=== PATIENT | female | born 1965 | race Caucasian/White ===

== ENCOUNTER → 2016-08-09 08:19 | Outpatient (CLI) | payer MEDICARE, MEDICAID ==
[2010-09-14 08:54] VITALS: BMI 27.2
[~2016-08-09 08:19] MED LIST: LAMICTAL100 MG PO; LAMICTAL200 MG PO; LEVEMIR100 U/M1 SC; OMEPRAZOLE20 M1 PO; TRAZODONE HCL300 MG PO; ZOCOR20 MG PO
== END | disposition home or self-care (01) ==
LOC: D.RAD 08-08 11:30
DX: R10.11 Right upper quadrant pain (principal); R68.81 Early satiety

== ENCOUNTER → 2016-08-14 09:07 | Outpatient (CLI) | payer MEDICARE, MEDICAID ==
[2010-09-14 08:54] VITALS: BMI 27.2
== END | disposition home or self-care (01) ==
LOC: D.NM 09:07
DX: R10.11 Right upper quadrant pain (principal); R68.81 Early satiety

== ENCOUNTER 2016-09-20 13:29 | Day surgery (SDC) | payer MEDICARE, MEDICAID ==
[~2016-09-20] VITALS: Ht 172.7 cm; Wt 89.5 kg
[2016-09-20 14:48] LABS: HEMATOCRIT 38.4 % (36.0-48.0); HEMOGLOBIN 12.7 g/dL (12-16); MCH 30.9 pg (26.0-34.0); MCHC 33.1 g/dL (31.0-37.0); MCV 93.4 fL (80.0-100.0); MEAN PLATELET VOLUME 9.5 fL (7.4-10.4); RBC 4.11 10x6/uL (4.00-5.40); RDW 13.4 % (11.5-14.5); WBC 7.2 10x3/uL (4.8-10.8)
[2016-09-20 15:01] LABS: ANION GAP 10.6 mmol/L (8-16); CALCIUM 8.8 mg/dL (8.5-10.1); CARBON DIOXIDE 29.5 mmol/L (21.0-32.0); CREATININE - SERUM 0.9 mg/dL (0.6-1.3); POTASSIUM - SERUM 4.1 mmol/L (3.5-5.1)
[2016-09-20] MEDS ORDERED: OMEPRAZOLE20 M1 PO (15:21)
[2016-09-20] MEDS ORDERED: LAMICTAL200 MG PO (15:22)
[2016-09-20] MEDS ORDERED: LAMICTAL100 MG PO ×2 (15:22)
[2016-09-20] MEDS ORDERED: TRAZODONE HCL300 MG PO (15:22)
[2016-09-20] MEDS ORDERED: ZOCOR20 MG PO (15:23)
[2016-09-20] MEDS ORDERED: LEVEMIR100 U/M1 SC (15:23)
[2016-09-20 15:27] VITALS: BP 120/66; Ht 172.7 cm; Wt 89.5 kg
--- NOTE | 2016-09-26 12:04 | OP ---
PATIENT NAME: ENOC GARVEY MEDICAL RECORD: [id number] :61 LOCATION:DBeatriceOPS ADMISSION DATE: SURGEON: RACHAEL MUELLER DO DATE OF OPERATION: 09/20/2016 PROCEDURE: EGD with biopsies. SCOPE: Olympus video gastroscope. MEDICATIONS: Propofol 100 mg IV per anesthesia. INDICATION: Abdominal pain in the epigastric region, dysphagia, nausea, gastroparesis, hunger pain. FINDINGS: Informed consent was given. The patient was made comfortable with the above medication. After reaching an adequate level of sedation by slow IV push, the patient was placed on her left side. The endoscope was then advanced under direct visualization through the mouth to the second portion of duodenum. The esophagus appeared normal in the proximal, middle and distal thirds of the esophagus, as well as the GE junction. The scope was advanced through the GE junction into the stomach and retroflexed to view the cardia which appeared normal. The fundus also appeared normal. The antrum appeared to have some possible gastritis, evidenced by some granularity and mild erythema. Random biopsies were taken to send for histology. The scope was advanced through the pylorus into the duodenum where the bulb and second portion of the duodenum appeared normal. The scope was withdrawn from the patient. The patient tolerated the procedure well and there were no complications. ESTIMATED BLOOD LOSS: Less than 3 cc. IMPRESSION: 1. Possible gastritis of the antrum and prepyloric region. Biopsies obtained with cold forceps. 2. Otherwise, normal upper endoscopy. RECOMMENDATIONS: 1. Discharge home when recovery parameters are met. 2. Continue current diet consisting of small frequent meals regarding her diagnosis of gastroparesis. 3. Consider intermittent, as needed, Reglan for severe symptoms. 4. We will order a modified barium swallow regarding dysphagia related to the oropharyngeal area and mechanism. 5. Follow up in GI clinic as needed for symptoms. TRANSINT:[id number] Voice Confirmation ID: [id number] DOCUMENT ID: [id number] RACHAEL MUELLER DO at 1204 CC: [id number] DICTATION DATE: 09/20/16 1705 PACKER OPERATOR AUTOMATIC: 09/21/16 0118 [facility] 09/20/16 [place] [address]
== END 2016-09-20 18:00 | disposition home or self-care (01) ==
LOC: D.OPS 13:29
PROVIDERS: Anesthesiology
DX: R10.13 Epigastric pain (principal); R13.10 Dysphagia, unspecified; J44.9 Chronic obstructive pulmonary disease, unspecified; F17.200 Nicotine dependence, unspecified, uncomplicated; K44.9 Diaphragmatic hernia without obstruction or gangrene; K21.9 Gastro-esophageal reflux disease without esophagitis; E11.43 Type 2 diabetes mellitus with diabetic autonomic (poly)neuropathy; K31.84 Gastroparesis; R11.0 Nausea

== ENCOUNTER → 2016-10-05 12:42 | Outpatient (CLI) | payer MEDICARE, MEDICAID | END | disposition home or self-care (01) | LOC: D.RAD 12:42 | DX: R13.10 Dysphagia, unspecified (principal) ==

== ENCOUNTER 2017-01-08 09:05 | Day surgery (SDC) | payer MEDICARE, MEDICAID ==
[~2017-01-08] VITALS: Ht 172.7 cm; Wt 84.5 kg
[2017-01-08 10:09] VITALS: BP 117/69; Ht 172.7 cm; Wt 84.5 kg
[2017-01-08 11:00] LABS: BASOPHILS 0.1 % (0-2); EOSINOPHILS 1.3 % (0-7); HEMATOCRIT 41.1 % (36.0-48.0); IMMATURE GRANULOCYTES 0.3 % (0-5); LYMPHOCYTES 27.5 % (15-50); MCH 31.5 pg (26.0-34.0); MCHC 34.1 g/dL (31.0-37.0); MCV 92.4 fL (80.0-100.0); MEAN PLATELET VOLUME 9.3 fL (7.4-10.4); NEUTROPHILS 61.8 % (40-80); PLATELET COUNT 201 10x3/uL (130-400); RBC 4.45 10x6/uL (4.00-5.40); RDW 13.3 % (11.5-14.5); WBC 6.8 10x3/uL (4.8-10.8)
[2017-01-08 11:16] LABS: ANION GAP 13.9 mmol/L (8-16); CALCIUM 9.4 mg/dL (8.5-10.1); CARBON DIOXIDE 26.1 mmol/L (21.0-32.0)
--- NOTE | 2017-01-08 13:05 | NUR ---
PIV DC W/CATHETER TIP INTACT
--- NOTE | 2017-01-08 13:05 | NUR ---
1300 BENEDICT FULL LIQUID TRAY WELL
--- NOTE | 2017-01-08 13:19 | NUR ---
1317 PT ESCORTRD OUT TO WAITING CAR WITH FRIEND DRIVING
--- NOTE | 2017-01-10 16:52 | OP ---
PATIENT NAME: ENOC GARVEY MEDICAL RECORD: [id number] :61 LOCATION:D.OPS ADMISSION DATE: SURGEON: RACHAEL MUELLER DO OPERATION DATE: 01/08/17 PROCEDURE: Colonoscopy. INDICATIONS FOR PROCEDURE: Diverticulitis and right lower quadrant abdominal pain. SCOPE: Olympus video pediatric colonoscope. MEDICATIONS: Propofol 250 milligrams IV per anesthesia. WITHDRAWAL TIME: 7 minutes. ESTIMATED BLOOD LOSS: None. COMPLICATIONS: None. FINDINGS: Informed consent was given. The patient was made comfortable with the above medication. After reaching an adequate level of sedation by slow IV push, the patient was placed on her left side. A digital rectal examination was performed and was normal. The endoscope was then advanced under direct visualization through the rectum to the terminal ileum. The scope was slowly withdrawn, and the mucosa was carefully examined. The prep quality was excellent. There was evidence of powell-diverticulosis of moderate severity. The majority of the diverticular changes were located in the sigmoid colon which made traversing the bowel difficult. There were no polyps visualized on this examination. Retroflexion was performed in the rectum, with visualization of small, nonbleeding internal hemorrhoids. The endoscope was withdrawn from the patient. The patient tolerated the procedure well, and there were no complications. IMPRESSIONS: 1. Powell-diverticulosis of moderate severity. 2. Internal hemorrhoids. PLAN/RECOMMENDATIONS: 1. Discharge home when recovery parameters are met. 2. High fiber diet. 3. Consider supplementing diet with Metamucil one to two tablespoons daily. 4. Continue current medications. 5. Will offer Bentyl for as needed use for abdominal pain if the patient would like a prescription for this. 6. Recall colonoscopy in five years. RACHAEL MUELLER DO at 1652 CC: [id number] DICTATION DATE: 01/08/17 1200 ARMORED MACHINE OPERATOR: DM 01/08/17 1457 [facility] 01/08/17 [id number] [place] [address]
== END 2017-01-08 13:17 | disposition home or self-care (01) ==
LOC: D.OPS 09:05
PROVIDERS: Anesthesiology
DX: K57.30 Diverticulosis of large intestine without perforation or abscess without bleeding (principal); K64.8 Other hemorrhoids; Z01.812 Encounter for preprocedural laboratory examination

== ENCOUNTER 2017-02-14 09:58 | Day surgery (SDC) | payer MEDICARE, MEDICAID ==
[~2017-02-14] VITALS: Ht 172.7 cm; Wt 86.8 kg
[2017-02-14] MEDS ORDERED: PROTONIX20 MG PO (10:31)
[2017-02-14] MEDS ORDERED: CARAFATE1 G/10 ML PO (10:31)
[2017-02-14 10:48] VITALS: BP 107/70; Ht 172.7 cm; Wt 86.8 kg
[2017-02-14 11:12] LABS: ANION GAP 11.7 mmol/L (8-16); CALCIUM 8.7 mg/dL (8.5-10.1); CARBON DIOXIDE 27.5 mmol/L (21.0-32.0); CREATININE - SERUM 0.9 mg/dL (0.6-1.3); POTASSIUM - SERUM 4.2 mmol/L (3.5-5.1)
[2017-02-14 11:27] LABS: HEMATOCRIT 37.7 % (36.0-48.0); HEMOGLOBIN 12.7 g/dL (12-16); MCH 31.2 pg (26.0-34.0); MCHC 33.7 g/dL (31.0-37.0); MCV 92.6 fL (80.0-100.0); MEAN PLATELET VOLUME 9.6 fL (7.4-10.4); RBC 4.07 10x6/uL (4.00-5.40); RDW 13.8 % (11.5-14.5); WBC 4.9 10x3/uL (4.8-10.8)
--- NOTE | 2017-02-14 13:47 | NUR ---
1250 FULL LIQUID TRAY PROVIDED. 1340 DC TEACHING COMPLETE PIV REMOVED W/CATHETER TIP INTACT
--- NOTE | 2017-02-14 13:56 | NUR ---
PT DC VIA WC W/DAUGHTER DRIVING
--- NOTE | 2017-02-16 08:48 | OP ---
PATIENT NAME: ENOC GARVEY MEDICAL RECORD: [id number] :61 LOCATION:D.OPS ADMISSION DATE: SURGEON: RACHAEL MUELLER DO DATE OF OPERATION: 02/14/2017 PROCEDURE: EGD with biopsies. INDICATIONS FOR PROCEDURE: Epigastric abdominal pain and nausea. SCOPE: Talkito video gastroscope. MEDICATIONS: Propofol 230 mg IV per anesthesia. ESTIMATED BLOOD LOSS: Minimal. COMPLICATIONS: None. FINDINGS: Informed consent was given. The patient was made comfortable with the above medication. After reaching an adequate level of sedation by slow IV push, the patient was placed on her left side. The endoscope was then advanced under direct visualization through the mouth to the second portion of the duodenum. The entire esophagus appeared normal, including the GE junction. The endoscope was advanced beyond the GE junction into the stomach and retroflexed to view the cardia, which appeared normal. The fundus, body, and antrum of the stomach all appeared normal. Random biopsies were taken to submit for histology and to rule out H. pylori. The endoscope was advanced beyond the pylorus into the duodenum where the bulb and second portion appeared normal. The scope was then withdrawn from the patient. The patient tolerated the procedure well and there were no complications. IMPRESSION: 1. Normal upper endoscopy. 2. Gastroparesis based on past gastric emptying study findings. PLAN AND RECOMMENDATIONS: 1. Discharge home when recovery parameters are met. 2. Follow up biopsy specimen results. 3. Continue current medications including omeprazole 20 mg daily. 4. Continue current diet, which consists of a gastroparesis diet. This would include smaller, more frequent meals with less solid and fibrous substances. 5. Consider intermittent Reglan use at 5 mg as needed for severe gastroparesis symptoms. 6. Follow up in GI clinic as needed. TRANSINT:[id number] Voice Confirmation ID: [id number] DOCUMENT ID: [id number] RACHAEL MUELLER DO at 0848 CC: [id number] DICTATION DATE: 02/14/17 1237 NANOELECTRONICS ENGINEER: 02/14/17 1601 [facility] 02/14/17 [place] [address]
== END 2017-02-14 13:58 | disposition home or self-care (01) ==
LOC: D.OPS 09:58
PROVIDERS: Internal Medicine Gastroenterology
DX: R10.13 Epigastric pain (principal); R11.0 Nausea; K21.9 Gastro-esophageal reflux disease without esophagitis; F17.200 Nicotine dependence, unspecified, uncomplicated; J44.9 Chronic obstructive pulmonary disease, unspecified; E11.43 Type 2 diabetes mellitus with diabetic autonomic (poly)neuropathy; K31.84 Gastroparesis; Z01.812 Encounter for preprocedural laboratory examination

== ENCOUNTER 2018-04-30 19:58 | Inpatient (IN) | payer MEDICARE, MEDICAID ==
[~2018-04-30] VITALS: Ht 172.7 cm; Wt 86.4 kg
--- NOTE | ~2018-04-30 | OP ---
PATIENT NAME: ENOC GARVEY MEDICAL RECORD: [id number] :61 LOCATION:D.MS [id number] ADMISSION DATE:05/01/18 SURGEON: EILEEN BURNETT MD DATE OF OPERATION: 05/06/2018 SURGEON: Eileen Burnett MD PREOPERATIVE DIAGNOSES: 1. Diverticulitis. 2. Diabetes. 3. GERD. 4. Bipolar disorder. 5. Tobacco abuse. POSTOPERATIVE DIAGNOSES: 1. Diverticulitis. 2. Diabetes. 3. GERD. 4. Bipolar disorder. 5. Tobacco abuse. PROCEDURE PERFORMED: Hand-assisted laparoscopic sigmoid colectomy, laparoscopic mobilization of splenic flexure, diverting loop ileostomy SURGEON: Eileen Burnett MD ESTIMATED BLOOD LOSS: 400 cc. SPECIMENS: Sigmoid colon and rectum. ANESTHESIA: General. COMPLICATIONS: None. Case was clean contaminated. OPERATIVE COURSE: After consent was obtained, the patient was taken to the operating room and the patient was placed in supine position on the table. General anesthesia was given. A timeout was taken to confirm correct patient and procedure. The patient was then placed in the lithotomy position. The rectum was irrigated with Betadine, saline, and a red rubber catheter. Next, the abdomen was prepped and draped in the typical sterile fashion. A lower midline incision was made from the umbilicus to the pubic tubercle using a 15 blade scalpel. Dissection then continued through subcutaneous tissue with electrocautery. The anterior midline fascia was incised using electrocautery. The peritoneum was grasped and cut with Metzenbaum scissors. Remaining portion of the peritoneum was opened using electrocautery. An Yuri Gelport was placed. Two 5-mm trocars were placed, a 5-mm trocar in the left lower quadrant and 5-mm trocar just above the umbilicus. The Yuri Gelport was then attached. The abdomen was insufflated. At this time, the white line of Toldt was taken down along the sigmoid colon and descending colon. This continued up around the splenic flexure with full mobilization of splenic flexure to create adequate length. Once full mobilization had been performed, the instruments were removed. The Gelport was removed. There was adhesions of the small bowel and greater omentum. At the area of sigmoid diverticulitis, small bowel lysis of OPERATIVE REPORT [id number] ENOC GARVEY adhesion was performed until almost small bowel was able to be mobilized out of the pelvis. The patient as well had a previous hysterectomy. At this time, the area of sigmoid diverticulitis was identified going approximately 4-5 cm proximal until healthy colon was identified. The mesentery window was created. The GI stapler was used to transect. The left ureter was identified. Vessel loop was placed around and the methylene blue was administered. Dissection then continued through the hemorrhoidal vessels. Hemorrhoid vessels were tied off with 2-0 silk suture. The mesentery was divided into the presacral fascia, which was bluntly dissected. The peritoneum was incised laterally and anteriorly using electrocautery for full mobilization of the distal rectum. At this time, the rectum was transected with a GI stapler. Remaining portion of mesentery was taken with the Harmonic scalpel. The specimen was sent for permanent pathology. There was adequate length and no tension of the descending colon and colorectal anastomosis was performed. The 25-mm anvil was placed into the descending colon. The EEA stapler was placed into the rectum. The anvil was attached to the spike. The EEA stapler was closed and held for 20 seconds. The stapling device was then stapled and cut. The EEA device was removed and evaluated there were 2 intact donuts. The staple line was then reinforced using interrupted 3-0 Vicryl suture. A 10 flat CIERRA drain was then placed into the deep pelvis and delivered through the left lower quadrant trocar. As it was removed, the pelvis was copiously irrigated and suctioned. Due to the acute nature of the episode, it was decided to perform a diverting loop ileostomy. At this time, the fascia was closed. All team members in the OR changed gown and gloves. Circular skin incision made in the right lower quadrant. Subcutaneous tissue was dissected down the external oblique fascia. Next, a cruciate incision made in the external oblique fascia. The muscles were gently spread apart. The peritoneum was incised with electrocautery. The Lucille was placed in the abdomen, grabbing the distal terminal ileum and delivering a loop ileostomy. Next, the fascia was closed with #1 looped PDS, perfecto and covered with sterile dressings. Next, a standard Erica ileostomy was created using a diverting loop ileostomy. The bowel was opened with electrocautery. The mucosa was then everted and secured to the skin using 3-0 Vicryl suture. An ostomy bag was placed. At the end of the case, all needle and instrument counts were correct. No complications occurred. The patient was extubated and transferred to PACU in stable condition. TRANSINT:[id number] Voice Confirmation ID: [id number] DOCUMENT ID: [id number] EILEEN BURNETT MD at 0755 CC: [id number] DICTATION DATE: 05/06/182011 PATENT ENGINEER: 05/06/18 2304 ADM IN [facility] [address] [place] [address]
--- NOTE | ~2018-04-30 | MORECARE ---
CASE MANAGEMENT DISCHARGE SUMMARY PATIENT: ENOC GARVEY UNIT: [id number] ADM DATE: 05/01/18 AGE: 53 : 61 SEX: F ROOM/BED: D.2230 AUTHOR: TANGELA,DOC PHYSICIAN: REFERRING PHYSICIAN: CARLOS ZEPEDA MD DATE OF SERVICE: 05/09/18 Discharge Plan Patient Name: ENOC GARVEY Facility: [facility]:[place] : 1965 Planned Disposition: Home with Home Health Anticipated Discharge Date: 05/08/18 Discharge Date: Expected LOS: 7 Initial Reviewer: [email or web address] Initial Review Date: 05/05/2018 Generated: 05/09/18 4:44 pm Comments DCP- Discharge Planning Updated by [email or web address]: Greta Parisi on 05/09/18 2:[address] Received discharge orders. Walk test completed, qualifies for home oxygen per walk test. Patient states will use [facility] in [place]. I called and spoke with Raquel in [place] and faxed walk test and clinical. They state they will bring walker and oxygen to the hospital. They are waiting on her PCP or Dr. Zepeda to sign oxygen order. She will discharge home with [facility]. I called and informed Lissette with [facility] she is going home today, they will admit tomorrow. Primary nurse (Miguelina) has provided 4 ostomy bags to go home with. Her daughter is picking her up and will stay with her if needed. DCP- Discharge Planning Updated by [email or web address]: Raven Hernandez on 05/05/18 8:[address] Patient Name: ENOC GARVEY Admission Status: ER Accout number: [id number] Admission Date: 05-01-2018 : 1965 Admission Diagnosis:DVTRCLI OF INTEST, PART UNSP, W/O PERF OR ABSCESS W/O B Attending: CARLOS ZEPEDA Current LOS: 4 Anticipated DC Date: 05-08-2018 Planned Disposition: Home with Home Health Primary Insurance: [facility] MEDICARE SOLUTIONS Discharge Planning Comments: CM MET WITH PATIENT REGARDING D/C NEEDS AND PLANS. PATIENT STATED SHE LIVES ALONE AND HER DAUGHTER (ELVIN) WILL DRIVE HER HOME AT DISCHARGE. PATIENT STATED SHE COULD STAY WITH HER DAUGHTER IF NEEDED AT DISCHARGE. PATIENT HAS ONE STEP TO ENTER HOME AND NO STAIRS INSIDE. PATIENT IS INDEPENDENT WITH HER CARE AND HAS A GLUCOMETER AT HOME. PATIENTS PCP IS DR. RUBIO IN [place] AND USES [facility]. PATIENT SIGNED THE [facility] FORM FOR HOME HEALTH. HER FIRST CHOICE IS [facility] AND HER SECOND IS [facility]. CM WILL CONTINUE TO FOLLOW PATIENT WITH D/C NEEDS AND PLANS. PCP DR. RUBIO [facility] [place] ELVIN (DAUGHTER) [phone] Community Health Program Coordinator: Raven Hernandez DCPIA - Discharge Planning Initial Assessment Updated by [email or web address]: Raven Hernandez on 05/05/18 9:47 am * Is the patient Alert and Oriented? Yes * How many steps to enter\exit or inside your home? * PCP DR. RUBIO ([place]) * Pharmacy [facility] IN [place] * Preadmission Environment Home Alone * ADLs Independent * Equipment Glucometer * List name and contact numbers for known caregivers / representatives who currently or will assist patient after discharge: ELVIN [phone] * Verbal permission to speak to the caregivers and representatives has been obtained from the patient. Yes * Community resources currently utilized None * Additional services required to return to the preadmission environment? Yes * Can the patient safely return to the preadmission environment? Yes * Has this patient been hospitalized within the prior 30 days at any hospital? No Last DP export: 05/09/18 1:32 p Patient Name: ENOC GARVEY Page 51861 at 1544 All edits/amendments must be made on the electronic document DICTATION DATE: 05/09/18 154 COLLEGE SPORTS ASSISTANT: ROBERTO 05/09/181543 RPT#: [id number] ME DATE: STATUS: ADM IN [facility] [address] [place] [address] END OF REPORT
--- NOTE | ~2018-04-30 | MORECARE ---
CASE MANAGEMENT DISCHARGE SUMMARY PATIENT: ENOC GARVEY UNIT: [id number] ADM DATE: 05/01/18 AGE: 53 : 61 SEX: F ROOM/BED: D.2230 AUTHOR: TANGELA,DOC PHYSICIAN: REFERRING PHYSICIAN: CARLOS GARCIA MD DATE OF SERVICE: 05/09/18 Discharge Plan Patient Name: ENOC GARVEY Facility: [facility]:[place] : 1965 Planned Disposition: Home with Home Health Anticipated Discharge Date: 05/08/18 Discharge Date: Expected LOS: 7 Initial Reviewer: [email or web address] Initial Review Date: 05/05/2018 Generated: 05/09/18 3:32 pm Comments DCP- Discharge Planning Updated by [email or web address]: Raven Hernandez on 05/05/18 8:[address] Patient Name: ENOC GARVEY Admission Status: ER Accout number: [id number] Admission Date: 05-01-2018 : 1965 Admission Diagnosis:DVTRCLI OF INTEST, PART UNSP, W/O PERF OR ABSCESS W/O B Attending: CARLOS GARCIA Current LOS: 4 Anticipated DC Date: 05-08-2018 Planned Disposition: Home with Home Health Primary Insurance: [facility] MEDICARE SOLUTIONS Discharge Planning Comments: CM MET WITH PATIENT REGARDING D/C NEEDS AND PLANS. PATIENT STATED SHE LIVES ALONE AND HER DAUGHTER (ELVIN) WILL DRIVE HER HOME AT DISCHARGE. PATIENT STATED SHE COULD STAY WITH HER DAUGHTER IF NEEDED AT DISCHARGE. PATIENT HAS ONE STEP TO ENTER HOME AND NO STAIRS INSIDE. PATIENT IS INDEPENDENT WITH HER CARE AND HAS A GLUCOMETER AT HOME. PATIENTS PCP IS DR. RUBIO IN [place] AND USES [facility]. PATIENT SIGNED THE [facility] FORM FOR HOME HEALTH. HER FIRST CHOICE IS [facility] AND HER SECOND IS [facility]. CM WILL CONTINUE TO FOLLOW PATIENT WITH D/C NEEDS AND PLANS. PCP DR. RUBIO [facility] [place] ELVIN (DAUGHTER) [phone] Instrumentation Controls Engineer: Raven Hernandez DCPIA - Discharge Planning Initial Assessment Updated by [email or web address]: Raven Hernandez on 05/05/18 9:47 am * Is the patient Alert and Oriented? Yes * How many steps to enter\exit or inside your home? * PCP DR. RUBIO ([place]) * Pharmacy [facility] IN [place] * Preadmission Environment Home Alone * ADLs Independent * Equipment Glucometer * List name and contact numbers for known caregivers / representatives who currently or will assist patient after discharge: ELVIN [phone] * Verbal permission to speak to the caregivers and representatives has been obtained from the patient. Yes * Community resources currently utilized None * Additional services required to return to the preadmission environment? Yes * Can the patient safely return to the preadmission environment? Yes * Has this patient been hospitalized within the prior 30 days at any hospital? No External Providers External Provider: Ana Luisa Foote Contact Date: Service Request Date: Service Type: Resolution: Reviewer: Comments: Last DP export: 05/08/18 1:18 p Patient Name: ENOC GARVEY Page 26626 at 1432 All edits/amendments must be made on the electronic document DICTATION DATE: 05/09/18 1431 SOFTWARE SUPPORT ANALYST: ROBERTO 05/09/18 1431 RPT#: [id number] DC DATE: STATUS: ADM IN [facility] [address] [place] [address] END OF REPORT
--- NOTE | ~2018-04-30 | MORECARE ---
CASE MANAGEMENT DISCHARGE SUMMARY PATIENT: ENOC GARVEY UNIT: [id number] ADM DATE: 05/01/18 AGE: 53 : 61 SEX: F ROOM/BED: D.2230 AUTHOR: ASHLEY HONEYCUTT PHYSICIAN: REFERRING PHYSICIAN: CARLOS GARCIA MD DATE OF SERVICE: 05/05/18 Discharge Plan Patient Name: ENOC GARVEY Facility: [facility]:[place] : 1965 Planned Disposition: Home with Home Health Anticipated Discharge Date: 05/08/18 Discharge Date: Expected LOS: 7 Initial Reviewer: [email or web address] Initial Review Date: 05/05/2018 Generated: 05/05/18 10:49 am DCPIA - Discharge Planning Initial Assessment Updated by [email or web address]: Raven Hernandez on 05/05/18 9:47 am * Is the patient Alert and Oriented? Yes * How many steps to enter\exit or inside your home? * PCP DR. RUBIO ([place]) * Pharmacy [facility] IN [place] * Preadmission Environment Home Alone * ADLs Independent * Equipment Glucometer * List name and contact numbers for known caregivers / representatives who currently or will assist patient after discharge: ELVIN [phone] * Verbal permission to speak to the caregivers and representatives has been obtained from the patient. Yes * Community resources currently utilized None * Additional services required to return to the preadmission environment? Yes * Can the patient safely return to the preadmission environment? Yes * Has this patient been hospitalized within the prior 30 days at any hospital? No Last DP export: 05/05/18 8:42 a Patient Name: ENOC GARVEY Page 98948 at 0949 All edits/amendments must be made on the electronic document DICTATION DATE: 05/05/18947 BURLAP ROLL COVERER: ROBERTO 05/05/18947 RPT#: [id number] DC DATE: STATUS: ADM IN [facility] [address] [place] [address] END OF REPORT
--- NOTE | ~2018-04-30 | MORECARE ---
CASE MANAGEMENT DISCHARGE SUMMARY PATIENT: ENOC GARVEY UNIT: [id number] ADM DATE: 05/01/18 AGE: 53 : 61 SEX: F ROOM/BED: D.2230 AUTHOR: TANGELA,DOC PHYSICIAN: REFERRING PHYSICIAN: CARLSO GARCIA MD DATE OF SERVICE: 05/05/18 Discharge Plan Patient Name: ENOC GARVEY Facility: [facility]:[place] : 1965 Planned Disposition: Home with Home Health Anticipated Discharge Date: 05/08/18 Discharge Date: Expected LOS: 7 Initial Reviewer: [email or web address] Initial Review Date: 05/05/2018 Generated: 05/05/18 11:01 am Comments DCP- Discharge Planning Updated by [email or web address]: Raven Hernandez on 05/05/18 8:[address] Patient Name: ENOC GARVEY Admission Status: ER Accout number: [id number] Admission Date: 05-01-2018 : 1965 Admission Diagnosis:DVTRCLI OF INTEST, PART UNSP, W/O PERF OR ABSCESS W/O B Attending: CARLOS GARCIA Current LOS: 4 Anticipated DC Date: 05-08-2018 Planned Disposition: Home with Home Health Primary Insurance: [facility] MEDICARE SOLUTIONS Discharge Planning Comments: CM MET WITH PATIENT REGARDING D/C NEEDS AND PLANS. PATIENT STATED SHE LIVES ALONE AND HER DAUGHTER (ELVIN) WILL DRIVE HER HOME AT DISCHARGE. PATIENT STATED SHE COULD STAY WITH HER DAUGHTER IF NEEDED AT DISCHARGE. PATIENT HAS ONE STEP TO ENTER HOME AND NO STAIRS INSIDE. PATIENT IS INDEPENDENT WITH HER CARE AND HAS A GLUCOMETER AT HOME. PATIENTS PCP IS DR. RUBIO IN [place] AND USES [facility]. PATIENT SIGNED THE [facility] FORM FOR HOME HEALTH. HER FIRST CHOICE IS [facility] AND HER SECOND IS [facility]. CM WILL CONTINUE TO FOLLOW PATIENT WITH D/C NEEDS AND PLANS. PCP DR. RUBIO [facility] [place] ELVIN (DAUGHTER) [phone] Library Manager: Raven Hernandez DCPIA - Discharge Planning Initial Assessment Updated by [email or web address]: Raven Hernandez on 05/05/18 9:47 am * Is the patient Alert and Oriented? Yes * How many steps to enter\exit or inside your home? * PCP DR. RUBIO ([place]) * Pharmacy [facility] [place] * Preadmission Environment Home Alone * ADLs Independent * Equipment Glucometer * List name and contact numbers for known caregivers / representatives who currently or will assist patient after discharge: ELVIN [phone] * Verbal permission to speak to the caregivers and representatives has been obtained from the patient. Yes * Community resources currently utilized None * Additional services required to return to the preadmission environment? Yes * Can the patient safely return to the preadmission environment? Yes * Has this patient been hospitalized within the prior 30 days at any hospital? No Last DP export: 05/05/18 8:49 a Patient Name: ENOC GARVEY Page 30344 at 1001 All edits/amendments must be made on the electronic document DICTATION DATE: 05/05/18 1001 MASH PROCESSING OPERATOR: ROBERTO 05/05/18 1001 RPT#: [id number] DC DATE: STATUS: ADM IN [facility] [address] [place] [address] END OF REPORT
--- NOTE | ~2018-04-30 | MORECARE ---
CASE MANAGEMENT DISCHARGE SUMMARY PATIENT: ENOC GARVEY UNIT: [id number] ADM DATE: 05/01/18 AGE: 53 : 61 SEX: F ROOM/BED: D.2230 AUTHOR: TAGNELA,DOC PHYSICIAN: REFERRING PHYSICIAN: CARLOS ZEPEDA MD DATE OF SERVICE: 05/13/18 Discharge Plan Patient Name: ENOC GARVEY Facility: [facility]:[place] : 1965 Planned Disposition: Home with Home Health Anticipated Discharge Date: 05/08/18 Discharge Date: 05/09/2018 Expected LOS: 7 Initial Reviewer: [id number] Initial Review Date: 05/05/2018 Generated: 05/13/18 3:15 pm Comments DCP- Discharge Planning Updated by [email or web address]: Greta Isak on 05/09/18 2:[address] Received discharge orders. Walk test completed, qualifies for home oxygen per walk test. Patient states will use [facility] in [place]. I called and spoke with Raquel in [place] and faxed walk test and clinical. They state they will bring walker and oxygen to the hospital. They are waiting on her PCP or Dr. Zepeda to sign oxygen order. She will discharge home with [facility]. I called and informed Lissette with [facility] she is going home today, they will admit tomorrow. Primary nurse (Miguelina) has provided 4 ostomy bags to go home with. Her daughter is picking her up and will stay with her if needed. 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 PATIENT STATED SHE LIVES ALONE AND HER DAUGHTER (ELVIN) WILL DRIVE HER HOME AT DISCHARGE. PATIENT STATED SHE COULD STAY WITH HER DAUGHTER IF NEEDED AT DISCHARGE. PATIENT HAS ONE STEP TO ENTER HOME AND NO STAIRS INSIDE. PATIENT IS INDEPENDENT WITH HER CARE AND HAS A GLUCOMETER AT HOME. PATIENTS PCP IS DR. RUBIO IN [place] AND USES [facility]. PATIENT SIGNED THE PANKAJ FORM FOR HOME HEALTH. HER FIRST CHOICE IS [facility] AND HER SECOND IS [facility]. CM WILL CONTINUE TO FOLLOW PATIENT WITH D/C NEEDS AND PLANS. PCP DR. RUBIO [facility] [place] ELVIN (DAUGHTER) [phone] Open Die Inspector: Raven Hernandez [facility] - Discharge Planning Initial Assessment Updated by [email or web address]: Raven Hernandez on 05/05/18 9:47 am * Is the patient Alert and Oriented? Yes * How many steps to enter\exit or inside your home? * PCP DR. RUBIO ([place]) * [facility]acy [facility] [place] * Preadmission Environment Home Alone * ADLs Independent * Equipment Glucometer * List name and contact numbers for known caregivers / representatives who currently or will assist patient after discharge: ELVIN [phone] * Verbal permission to speak to the caregivers and representatives has been obtained from the patient. Yes * Community resources currently utilized None * Additional services required to return to the preadmission environment? Yes * Can the patient safely return to the preadmission environment? Yes * Has this patient been hospitalized within the prior 30 days at any hospital? No Coverage Notice Reviewer: [id number] Patti Parisi Notice Issued Date-Time: 05/09/2018 15:47 Notice Type: IM Discharge Notice Notice Delivered To: Patient Relationship to Patient: Self Dumbwaiter Operator Name: Delivery Method: HAND - Hand Delivered Noreen Days: Prior Verbal Notification: Recipient Understood Notice: Yes Recipient Signature: Yes Med Rec Note Co-signed by Attending: Coverage Notice Comment: IMM explained, signed, copy given, original placed in MR Last DP export: 05/09/18 2:44 p Patient Name: ENOC GARVEY Page 78786 at 1415 All edits/amendments must be made on the electronic document DICTATION DATE: 05/13/18 1911 POST HOLE DIGGER: ROBERTO 05/13/18 1415 RPT#: [id number] DC DATE:05/09/18 STATUS: DIS IN [facility] [address] [place] [address] END OF REPORT
--- NOTE | ~2018-04-30 | MORECARE ---
CASE MANAGEMENT DISCHARGE SUMMARY PATIENT: ENOC GARVEY UNIT: [id number] ADM DATE: 05/01/18 AGE: 53 : 61 SEX: F ROOM/BED: D.2230 AUTHOR: TANGELA,DOC PHYSICIAN: REFERRING PHYSICIAN: CARLOS GARCIA MD DATE OF SERVICE: 05/08/18 Discharge Plan Patient Name: ENOC GARVEY Facility: [facility]:[place] : 1965 Planned Disposition: Home with Home Health Anticipated Discharge Date: 05/08/18 Discharge Date: Expected LOS: 7 Initial Reviewer: [email or web address] Initial Review Date: 05/05/2018 Generated: 05/08/18 3:18 pm Comments DCP- Discharge Planning Updated by [email or web address]: aRven Hernandez on 05/05/18 8:[address] Patient Name: ENOC GARVEY Admission Status: ER Accout number: [id number] Admission Date: 05-01-2018 : 1965 Admission Diagnosis:DVTRCLI OF INTEST, PART UNSP, 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 PATIENT STATED SHE LIVES ALONE AND HER DAUGHTER (ELVIN) WILL DRIVE HER HOME AT DISCHARGE. PATIENT STATED SHE COULD STAY WITH HER DAUGHTER IF NEEDED AT DISCHARGE. PATIENT HAS ONE STEP TO ENTER HOME AND NO STAIRS INSIDE. PATIENT IS INDEPENDENT WITH HER CARE AND HAS A GLUCOMETER AT HOME. PATIENTS PCP IS DR. RUBIO IN [place] AND USES [facility]. PATIENT SIGNED THE P[facility] FORM FOR HOME HEALTH. HER FIRST CHOICE IS [facility] AND HER SECOND IS [facility]. CM WILL CONTINUE TO FOLLOW PATIENT WITH D/C NEEDS AND PLANS. PCP DR. RUBIO [facility] [place] ELVIN (DAUGHTER) [phone] Cake Wrapper: Raven Hernandez DCPIA - Discharge Planning Initial Assessment Updated by [email or web address]: Raven Hernandez on 05/05/18 9:47 am * Is the patient Alert and Oriented? Yes * How many steps to enter\exit or inside your home? * PCP DR. RUBIO ([place]) * Pharmacy [facility] [place] * Preadmission Environment Home Alone * ADLs Independent * Equipment Glucometer * List name and contact numbers for known caregivers / representatives who currently or will assist patient after discharge: ELVIN [phone] * Verbal permission to speak to the caregivers and representatives has been obtained from the patient. Yes * Community resources currently utilized None * Additional services required to return to the preadmission environment? Yes * Can the patient safely return to the preadmission environment? Yes * Has this patient been hospitalized within the prior 30 days at any hospital? No External Providers [facility] Next Contact Date: Service Request Date: Service Type: Resolution: Reviewer: Comments: Last DP export: 05/05/18 9:01 a Patient Name: ENOC GARVEY Page 45442 at 1418 All edits/amendments must be made on the electronic document DICTATION DATE: 05/08/181416 HUMAN RESOURCES TECHNICIAN: ROBERTO 05/08/181416 RPT#: [id number] DC DATE: STATUS: ADM IN [facility] [address] [place] [address] END OF REPORT
--- NOTE | ~2018-04-30 | MORECARE ---
CASE MANAGEMENT DISCHARGE SUMMARY PATIENT: ENOC GARVEY UNIT: [id number] ADM DATE: 05/01/18 AGE: 53 : 61 SEX: F ROOM/BED: D.2230 AUTHOR: ASHLEY HONEYCUTT PHYSICIAN: REFERRING PHYSICIAN: CARLOS GARCIA MD DATE OF SERVICE: 05/05/18 Discharge Plan Patient Name: ENOC GARVEY Facility: [facility]:[place] : 1965 Planned Disposition: Home with Home Health Anticipated Discharge Date: 05/08/18 Discharge Date: Expected LOS: 7 Initial Reviewer: [email or web address] Initial Review Date: 05/05/2018 Generated: 05/05/18 10:42 am Patient Name: ENOC GARVEY Page 00373 at 0942 All edits/amendments must be made on the electronic document DICTATION DATE: 05/05/18941 STUDIO ASSOCIATE: ROBERTO 05/05/18941 RPT#: [id number] DC DATE: STATUS: ADM IN [facility] [address] [place] [address] END OF REPORT
[~2018-04-30 19:58] MED LIST changes: +CARAFATE1 G/10 ML PO; +PROTONIX20 MG PO
[2018-04-30] MEDS ORDERED: HYDROCODON-ACE1 EAC7 PO (20:25)
[2018-04-30 22:05] LABS: BASOPHILS 0.2 % (0-2); HEMATOCRIT 35.5 % (36.0-48.0); HEMOGLOBIN 12.1 g/dL (12-16); IMMATURE GRANULOCYTES 0.3 % (0-5); LYMPHOCYTES 22.4 % (15-50); MCH 31.7 pg (26.0-34.0); MCHC 34.1 g/dL (31.0-37.0); MCV 92.9 fL (80.0-100.0); MEAN PLATELET VOLUME 9.2 fL (7.4-10.4); MONOCYTES 8.4 % (2-11); NEUTROPHILS 66.7 % (40-80); PLATELET COUNT 200 10x3/uL (130-400); RBC 3.82 10x6/uL (4.00-5.40); RDW 13.3 % (11.5-14.5); WBC 10.8 10x3/uL (4.8-10.8)
[2018-04-30 22:09] LABS: APPEARANCE CLEAR (CLEAR); BILIRUBIN NEGATIVE (NEGATIVE); COLOR YELLOW (YELLOW); GLUCOSE NEGATIVE (NEGATIVE); KETONE NEGATIVE (NEGATIVE); NITRITE NEGATIVE (NEGATIVE); PROTEIN NEGATIVE (NEGATIVE); UROBILINOGEN NORMAL (NORMAL)
[2018-04-30 22:10] LABS: BACTERIA MODERATE /hpf (NONE SEEN); EPITHELIAL CELLS 0-5 /hpf (0-5); WHITE CELLS - URINE 0-5 /hpf (0-5)
[2018-04-30 22:27] LABS: ALBUMIN 3.1 g/dL (3.4-5.0); ALKALINE PHOSPHATASE 80 U/L (46-116); ALT (SGPT) 19 U/L (10-68); BILIRUBIN - TOTAL 0.22 mg/dL (0.2-1.3); CALC OSMOLALITY 277 mosm/kg (275-300); CALCIUM 8.4 mg/dL (8.5-10.1); CARBON DIOXIDE 29.7 mmol/L (21.0-32.0); CHLORIDE - SERUM 101 mmol/L (98-107); CREATININE - SERUM 0.9 mg/dL (0.6-1.3); GLUCOSE 172 mg/dL (74-106); PROTEIN - SERUM 7.1 g/dL (6.4-8.2); SODIUM 138 mmol/L (136-145); UREA NITROGEN 8 mg/dL (7-18); eGFR NON AFRICAN AMERICAN 69 mL/min (90-120)
[2018-04-30 22:29] LABS: AMYLASE - SERUM 25 U/L (25-115); LIPASE 112 U/L (73-393)
[2018-04-30 22:30] LABS: TROPONIN-I < 0.017 ng/mL (0.000-0.060)
[2018-05-01] VITALS (15 sets, daily range): BP systolic 109–126; BP diastolic 68–79; BMI 28.8
[2018-05-02 03:09] VITALS: BP 101/46; BMI 28.9
[2018-05-02 05:00] VITALS: BP 108/51
[2018-05-02 06:09] LABS: BASOPHILS 0.2 % (0-2); EOSINOPHILS 1.9 % (0-7); HEMATOCRIT 32.7 % (36.0-48.0); HEMOGLOBIN 10.8 g/dL (12-16); IMMATURE GRANULOCYTES 0.2 % (0-5); LYMPHOCYTES 37.1 % (15-50); MCH 31.1 pg (26.0-34.0); MCV 94.2 fL (80.0-100.0); MEAN PLATELET VOLUME 9.3 fL (7.4-10.4); NEUTROPHILS 50.6 % (40-80); PLATELET COUNT 183 10x3/uL (130-400); RBC 3.47 10x6/uL (4.00-5.40); RDW 13.5 % (11.5-14.5)
[2018-05-02 06:36] LABS: WBC 5.8 10x3/uL (4.8-10.8)
[2018-05-02 06:49] LABS: ALBUMIN 2.5 g/dL (3.4-5.0); ALKALINE PHOSPHATASE 48 U/L (46-116); ALT (SGPT) 16 U/L (10-68); BILIRUBIN - TOTAL 0.25 mg/dL (0.2-1.3); CALC OSMOLALITY 278 mosm/kg (275-300); CARBON DIOXIDE 27.7 mmol/L (21.0-32.0); CHLORIDE - SERUM 106 mmol/L (98-107); CREATININE - SERUM 0.7 mg/dL (0.6-1.3); GLUCOSE 126 mg/dL (74-106); POTASSIUM - SERUM 3.9 mmol/L (3.5-5.1); PROTEIN - SERUM 6.1 g/dL (6.4-8.2); SODIUM 140 mmol/L (136-145); UREA NITROGEN 6 mg/dL (7-18); eGFR NON AFRICAN AMERICAN > 90 mL/min (90-120)
[2018-05-02 09:32] VITALS: BP 105/53
[2018-05-02 12:00] VITALS: BP 123/76
[2018-05-02 21:35] VITALS: BP 120/48
[2018-05-03 04:47] LABS: BASOPHILS 0.2 % (0-2); EOSINOPHILS 3.6 % (0-7); HEMATOCRIT 32.6 % (36.0-48.0); HEMOGLOBIN 10.8 g/dL (12-16); IMMATURE GRANULOCYTES 0.2 % (0-5); LYMPHOCYTES 42.1 % (15-50); MCH 31.3 pg (26.0-34.0); MCHC 33.1 g/dL (31.0-37.0); MCV 94.5 fL (80.0-100.0); MEAN PLATELET VOLUME 8.8 fL (7.4-10.4); MONOCYTES 8.6 % (2-11); NEUTROPHILS 45.3 % (40-80); PLATELET COUNT 183 10x3/uL (130-400); RBC 3.45 10x6/uL (4.00-5.40); RDW 13.2 % (11.5-14.5)
[2018-05-03 05:00] LABS: ALBUMIN 2.6 g/dL (3.4-5.0); ALKALINE PHOSPHATASE 49 U/L (46-116); ALT (SGPT) 16 U/L (10-68); BILIRUBIN - TOTAL 0.17 mg/dL (0.2-1.3); CALC OSMOLALITY 278 mosm/kg (275-300); CALCIUM 8.1 mg/dL (8.5-10.1); CARBON DIOXIDE 28.9 mmol/L (21.0-32.0); CHLORIDE - SERUM 106 mmol/L (98-107); CHOL - HDL RATIO 2.7 ratio (2.3-4.1); CHOLESTEROL, TOTAL 122 mg/dL (0-200); CREATININE - SERUM 0.8 mg/dL (0.6-1.3); GLUCOSE 147 mg/dL (74-106); HDL CHOLESTEROL 46 mg/dL (32-96); LDL CHOLESTEROL 63 mg/dL (0-100); LDL-HDL RATIO 1.4 ratio (1.5-3.5); POTASSIUM - SERUM 3.9 mmol/L (3.5-5.1); PROTEIN - SERUM 6.1 g/dL (6.4-8.2); SODIUM 140 mmol/L (136-145); TRIGLYCERIDE 67 mg/dL (30-200); UREA NITROGEN 5 mg/dL (7-18); eGFR NON AFRICAN AMERICAN 79 mL/min (90-120)
[2018-05-03 05:12] VITALS: BP 106/63
[2018-05-03 08:29] VITALS: BP 101/62
[2018-05-03 12:21] VITALS: BP 100/66
[2018-05-03 15:33] VITALS: BP 104/67
[2018-05-03 21:26] VITALS: BP 141/75
[2018-05-04 04:51] VITALS: BP 116/63
[2018-05-04 09:35] VITALS: BP 113/63
[2018-05-04 10:30] VITALS: Ht 172.7 cm; Wt 86.4 kg
[2018-05-04 20:39] VITALS: BP 133/68
[2018-05-05 05:02] VITALS: BP 129/66
[2018-05-05 09:01] VITALS: BP 128/62
[2018-05-05 09:04] VITALS: BP 111/62
[2018-05-05 11:52] VITALS: BP 125/66
[2018-05-05 15:32] VITALS: BP 100/81
[2018-05-05 20:50] VITALS: BP 112/70
[2018-05-06 01:20] VITALS: BP 117/64
[2018-05-06 05:28] VITALS: BP 134/63
[2018-05-06 07:44] LABS: BASOPHILS 0.2 % (0-2); HEMATOCRIT 34.9 % (36.0-48.0); HEMOGLOBIN 11.6 g/dL (12-16); IMMATURE GRANULOCYTES 0.2 % (0-5); LYMPHOCYTES 28.4 % (15-50); MCH 31.4 pg (26.0-34.0); MCHC 33.2 g/dL (31.0-37.0); MCV 94.6 fL (80.0-100.0); MEAN PLATELET VOLUME 8.8 fL (7.4-10.4); MONOCYTES 10.2 % (2-11); PLATELET COUNT 197 10x3/uL (130-400); RBC 3.69 10x6/uL (4.00-5.40); RDW 13.1 % (11.5-14.5); WBC 5.7 10x3/uL (4.8-10.8)
[2018-05-06 07:57] LABS: APTT 27.7 SECONDS (22.8-39.4); INR 1.07 (0.85-1.17); PROTIME 13.5 SECONDS (11.6-15.0)
[2018-05-06 08:04] LABS: ANION GAP 10.1 mmol/L (8-16); CALCIUM 8.2 mg/dL (8.5-10.1); CARBON DIOXIDE 28.7 mmol/L (21.0-32.0); CREATININE - SERUM 0.9 mg/dL (0.6-1.3); POTASSIUM - SERUM 3.8 mmol/L (3.5-5.1)
[2018-05-06 08:37] VITALS: BP 149/70
[2018-05-06 13:07] VITALS: BP 144/68
[2018-05-07] VITALS (7 sets, daily range): BP systolic 89–164; BP diastolic 46–71
[2018-05-07 09:51] LABS: BASOPHILS 0 % (0-2); EOSINOPHILS 0.1 % (0-7); HEMATOCRIT 29.9 % (36.0-48.0); HEMOGLOBIN 9.7 g/dL (12-16); IMMATURE GRANULOCYTES 0.2 % (0-5); LYMPHOCYTES 11.8 % (15-50); MCHC 32.4 g/dL (31.0-37.0); MCV 95.5 fL (80.0-100.0); MEAN PLATELET VOLUME 8.9 fL (7.4-10.4); MONOCYTES 6.6 % (2-11); NEUTROPHILS 81.3 % (40-80); PLATELET COUNT 189 10x3/uL (130-400); RBC 3.13 10x6/uL (4.00-5.40); RDW 13.2 % (11.5-14.5)
[2018-05-07 09:52] LABS: WBC 8.4 10x3/uL (4.8-10.8)
[2018-05-07 10:05] LABS: CARBON DIOXIDE 23.5 mmol/L (21.0-32.0); CHLORIDE - SERUM 106 mmol/L (98-107); CREATININE - SERUM 0.7 mg/dL (0.6-1.3); GLUCOSE 139 mg/dL (74-106); MAGNESIUM - SERUM 1.3 mg/dL (1.8-2.4); POTASSIUM - SERUM 3.7 mmol/L (3.5-5.1); SODIUM 136 mmol/L (136-145); eGFR NON AFRICAN AMERICAN > 90 mL/min (90-120)
[2018-05-07 10:08] LABS: CALC OSMOLALITY 271 mosm/kg (275-300); UREA NITROGEN 6 mg/dL (7-18)
[2018-05-07 10:12] LABS: CALCIUM 6.8 mg/dL (8.5-10.1)
[2018-05-08] VITALS: BP 103/55
[2018-05-08 05:00] VITALS: BP 106/60
[2018-05-08 07:08] LABS: BASOPHILS 0.1 % (0-2); EOSINOPHILS 0.3 % (0-7); HEMATOCRIT 30.7 % (36.0-48.0); HEMOGLOBIN 10.2 g/dL (12-16); IMMATURE GRANULOCYTES 0.3 % (0-5); MCH 30.8 pg (26.0-34.0); MCHC 33.2 g/dL (31.0-37.0); MEAN PLATELET VOLUME 8.6 fL (7.4-10.4); MONOCYTES 8.1 % (2-11); NEUTROPHILS 84.2 % (40-80); PLATELET COUNT 173 10x3/uL (130-400); RBC 3.31 10x6/uL (4.00-5.40); RDW 13.5 % (11.5-14.5)
[2018-05-08 07:16] LABS: CALC OSMOLALITY 270 mosm/kg (275-300); CALCIUM 7.6 mg/dL (8.5-10.1); CARBON DIOXIDE 26.1 mmol/L (21.0-32.0); CHLORIDE - SERUM 102 mmol/L (98-107); CREATININE - SERUM 0.7 mg/dL (0.6-1.3); GLUCOSE 139 mg/dL (74-106); MAGNESIUM - SERUM 1.4 mg/dL (1.8-2.4); POTASSIUM - SERUM 3.4 mmol/L (3.5-5.1); SODIUM 136 mmol/L (136-145); eGFR NON AFRICAN AMERICAN > 90 mL/min (90-120)
[2018-05-08 07:17] LABS: UREA NITROGEN 4 mg/dL (7-18)
[2018-05-08 07:21] LABS: WBC 12.1 10x3/uL (4.8-10.8)
[2018-05-08 07:22] LABS: MCV 92.7 fL (80.0-100.0)
[2018-05-08 09:57] VITALS: BP 103/88
[2018-05-08 12:48] VITALS: BP 94/54
[2018-05-08 17:08] VITALS: BP 106/57
[2018-05-08 20:00] VITALS: BP 90/43
[2018-05-09 05:00] VITALS: BP 104/51
[2018-05-09 05:07] LABS: BASOPHILS 0.1 % (0-2); EOSINOPHILS 0.4 % (0-7); HEMATOCRIT 28.1 % (36.0-48.0); HEMOGLOBIN 9.5 g/dL (12-16); IMMATURE GRANULOCYTES 0.3 % (0-5); MCH 31.1 pg (26.0-34.0); MCHC 33.8 g/dL (31.0-37.0); MCV 92.1 fL (80.0-100.0); MEAN PLATELET VOLUME 8.9 fL (7.4-10.4); MONOCYTES 8.8 % (2-11); NEUTROPHILS 82.4 % (40-80); PLATELET COUNT 183 10x3/uL (130-400); RBC 3.05 10x6/uL (4.00-5.40); RDW 13.5 % (11.5-14.5); WBC 10.5 10x3/uL (4.8-10.8)
[2018-05-09 05:23] LABS: CALC OSMOLALITY 275 mosm/kg (275-300); CALCIUM 7.7 mg/dL (8.5-10.1); CARBON DIOXIDE 29.7 mmol/L (21.0-32.0); CHLORIDE - SERUM 103 mmol/L (98-107); CREATININE - SERUM 0.6 mg/dL (0.6-1.3); GLUCOSE 181 mg/dL (74-106); PHOSPHOROUS 1.8 mg/dL (2.5-4.9); POTASSIUM - SERUM 3.2 mmol/L (3.5-5.1); SODIUM 137 mmol/L (136-145); UREA NITROGEN 4 mg/dL (7-18); eGFR NON AFRICAN AMERICAN > 90 mL/min (90-120)
[2018-05-09 05:27] LABS: MAGNESIUM - SERUM 1.9 mg/dL (1.8-2.4)
[2018-05-09] MEDS ORDERED: LEVOFLOXACIN500 MG PO (08:15)
[2018-05-09] MEDS ORDERED: HYDROCODON-ACE1 EAC7 PO (08:15)
[2018-05-09 08:35] VITALS: BP 98/59
== END 2018-05-09 18:18 | disposition home health service (06) | DRG 330 ==
LOC: D.ER 19:58 → D.MS 05-01 04:32 → D.EDHOLD 05-01 04:32 → D.MS 05-01 18:12
PROVIDERS: Family Medicine; Surgery
PROC: 0D1B0Z4 Bypass Ileum to Cutaneous, Open Approach (ICD-10-PCS; 2018-05-06)
PROC: 0DTN0ZZ Resection of Sigmoid Colon, Open Approach (ICD-10-PCS; principal; 2018-05-06 14:45)
DX: K57.92 Diverticulitis of intestine, part unspecified, without perforation or abscess without bleeding (principal); K56.7 Ileus, unspecified; F17.213 Nicotine dependence, cigarettes, with withdrawal; F31.30 Bipolar disorder, current episode depressed, mild or moderate severity, unspecified; E11.9 Type 2 diabetes mellitus without complications; K21.9 Gastro-esophageal reflux disease without esophagitis; F41.8 Other specified anxiety disorders; F43.10 Post-traumatic stress disorder, unspecified; E78.5 Hyperlipidemia, unspecified; E87.6 Hypokalemia

== ENCOUNTER 2018-05-12 00:36 | Inpatient (IN) | payer MEDICARE, MEDICAID ==
[~2018-05-12] VITALS: Ht 172.7 cm; Wt 86.2 kg
--- NOTE | ~2018-05-12 | MORECARE ---
CASE MANAGEMENT DISCHARGE SUMMARY PATIENT: ENOC GARVEY UNIT: [id number] ADM DATE: 05/12/18 AGE: 53 : 61 SEX: F ROOM/BED: D.2234 AUTHOR: TANGELA,DOC PHYSICIAN: REFERRING PHYSICIAN: EILEEN BURNETT MD DATE OF SERVICE: 05/14/18 Discharge Plan Patient Name: ENOC GARVEY Facility: [facility]:[place] : 1965 Planned Disposition: Home with Home Health Anticipated Discharge Date: Discharge Date: Expected LOS: Initial Reviewer: [email or web address] Initial Review Date: 05/14/2018 Generated: 05/14/18 10:35 am Comments DCP- Discharge Planning Updated by [email or web address]: Greta Parisi on 05/14/18 8:[address] Patient Name: ENOC GARVEY Admission Status: ER Accout number: [id number] Admission Date: 05-12-2018 : 1965 Admission Diagnosis: Attending: EILEEN BURNETT Current LOS: 2 Anticipated DC Date: Planned Disposition: Home with Home Health Primary Insurance: [facility] MEDICARE SOLUTIONS Discharge Planning Comments: CM met with patient, she is alone in the room. She states her daughter will be staying with her for a couple of days when she goes home, then she may go stay with her daughter at [address] [place] [address] in [place]. States she would still like [facility] on discharge to continue ostomy teaching. She has oxygen from [facility], states she may not need it any more. No other needs voiced at this time and no needs identified. CM will continue to follow and assist with discharge planning/needs. Outside Property Agent: Greta Parisi DCPIA - Discharge Planning Initial Assessment Updated by [email or web address]: Greta Parisi on 05/14/18 9:29 am * Is the patient Alert and Oriented? Yes * How many steps to enter\exit or inside your home? 1/0 * PCP Dr. Chauhan * Pharmacy [facility] * Preadmission Environment Home Alone * ADLs Independent * Equipment Glucometer Other Oxygen * Other Equipment Portable oxygen * List name and contact numbers for known caregivers / representatives who currently or will assist patient after discharge: [facility] - [phone] * Verbal permission to speak to the caregivers and representatives has been obtained from the patient. Yes * Community resources currently utilized Home Health * Please name any agencies selected above. [facility] * Additional services required to return to the preadmission environment? No * Can the patient safely return to the preadmission environment? Yes * Has this patient been hospitalized within the prior 30 days at any hospital? Yes Patient Name: ENOC GARVEY Page [id number] at 0935 All edits/amendments must be made on the electronic document DICTATION DATE: 05/14/18933 FABRIC PATTERN GRADER: ROBERTO 05/14/18933 RPT#: [id number] DC DATE: STATUS: ADM IN [facility] [address] [place] [address] END OF REPORT
--- NOTE | ~2018-05-12 | MORECARE ---
CASE MANAGEMENT DISCHARGE SUMMARY PATIENT: ENOC GARVEY UNIT: [id number] ADM DATE: 05/12/18 AGE: 53 : 61 SEX: F ROOM/BED: D.2234 AUTHOR: TANGELA,DOC PHYSICIAN: REFERRING PHYSICIAN: EILEEN BURNETT MD DATE OF SERVICE: 05/16/18 Discharge Plan Patient Name: ENOC GARVEY Facility: [facility]:[place] : 1965 Planned Disposition: Home with Home Health Anticipated Discharge Date: Discharge Date: Expected LOS: Initial Reviewer: [id number] Initial Review Date: 05/14/2018 Generated: 05/16/18 10:26 am Comments DCP- Discharge Planning Updated by [email or web address]: Greta Parisi on 05/16/18 8:[address] Received order for discharge. Patient's daughter is in the room and will take her home. They are both in agreement to discharge plan. She will be going to her own house. I called and spoke with Lissette at [facility] and clinical faxed. CM will continue to assist with discharge planning/needs. Home today with [facility]. DCP- Discharge Planning Updated by [email or web address]: Greta Parisi on 05/14/18 8:[address] Patient Name: ENOC GARVEY Admission Status: ER Accout number: [id number] Admission Date: 05-12-2018 : 1965 Admission Diagnosis: Attending: EILEEN BURNETT Current LOS: 2 Anticipated DC Date: Planned Disposition: Home with Home Health Primary Insurance: [facility] MEDICARE SOLUTIONS Discharge Planning Comments: CM met with patient, she is alone in the room. She states her daughter will be staying with her for a couple of days when she goes home, then she may go stay with her daughter at [address] [place] [address] in [place]. States she would still like [facility] on discharge to continue ostomy teaching. She has oxygen from [facility], states she may not need it any more. No other needs voiced at this time and no needs identified. CM will continue to follow and assist with discharge planning/needs. Diagnostic Medical Sonographer: Greta Parisi DCPIA - Discharge Planning Initial Assessment Updated by [email or web address]: Greta Parisi on 05/14/18 9:29 am * Is the patient Alert and Oriented? Yes * How many steps to enter\exit or inside your home? 1/0 * PCP Dr. Chauhan * Pharmacy [facility] * Preadmission Environment Home Alone * ADLs Independent * Equipment Glucometer Other Oxygen * Other Equipment Portable oxygen * List name and contact numbers for known caregivers / representatives who currently or will assist patient after discharge: [facility] - [phone] * Verbal permission to speak to the caregivers and representatives has been obtained from the patient. Yes * Community resources currently utilized Home Health * Please name any agencies selected above. [facility] * Additional services required to return to the preadmission environment? No * Can the patient safely return to the preadmission environment? Yes * Has this patient been hospitalized within the prior 30 days at any hospital? Yes External Providers External Provider: [facility] Next Contact Date: Service Request Date: Service Type: Resolution: Reviewer: Comments: Coverage Notice Reviewer: [id number] - Greta Parisi Notice Issued Date-Time: 05/16/2018 9:15 Notice Type: IM Discharge Notice Notice Delivered To: Patient Relationship to Patient: Self Professor Criminal Justice Name: Delivery Method: HAND - Hand Delivered Noreen Days: Prior Verbal Notification: Recipient Understood Notice: Yes Recipient Signature: Yes Med Rec Note Co-signed by Attending: Coverage Notice Comment: IMM explained, signed, copy given and original placed in MR Last DP export: 05/14/18 8:35 Patient Name: ENOC GARVEY Page 61625 at 0926 All edits/amendments must be made on the electronic document DICTATION DATE: 05/16/18924 FIRE TECHNICIAN: ROBERTO 05/16/18924 RPT#: [id number] DC DATE: STATUS: ADM IN [facility] [address] [place] [address] END OF REPORT
--- NOTE | ~2018-05-12 | MORECARE ---
CASE MANAGEMENT DISCHARGE SUMMARY PATIENT: ENOC GARVEY UNIT: [id number] ADM DATE: 05/12/18 AGE: 53 : 61 SEX: F ROOM/BED: D.2234 AUTHOR: TANGELA,DOC PHYSICIAN: REFERRING PHYSICIAN: EILEEN BURNETT MD DATE OF SERVICE: 05/17/18 Discharge Plan Patient Name: ENOC GARVEY Facility: [facility]:[place] : 1965 Planned Disposition: Home with Home Health Anticipated Discharge Date: Discharge Date: 05/16/2018 Expected LOS: 0 Initial Reviewer: [email or web address] Initial Review Date: 05/14/2018 Generated: 05/17/18 9:26 am Comments DCP- Discharge Planning Updated by [email or web address]: Greta Parisi on 05/16/18 8:[address] Received order for discharge. Patient's daughter is in the room and will take her home. They are both in agreement to discharge plan. She will be going to her own house. I called and spoke with Lissette at [facility] and clinical faxed. CM will continue to assist with discharge planning/needs. Home today with [facility]. DCP- Discharge Planning Updated by [email or web address]: Greta Parisi on 05/14/18 8:[address] Patient Name: ENOC GARVEY Admission Status: ER Accout number: [id number] Admission Date: 05-12-2018 : 1965 Admission Diagnosis: Attending: EILEEN BURNETT Current LOS: 2 Anticipated DC Date: Planned Disposition: Home with Home Health Primary Insurance: [facility] MEDICARE SOLUTIONS Discharge Planning Comments: CM met with patient, she is alone in the room. She states her daughter will be staying with her for a couple of days when she goes home, then she may go stay with her daughter at [address] [place] [address] in [place]. States she would still like [facility] on discharge to continue ostomy teaching. She has oxygen from [facility], states she may not need it any more. No other needs voiced at this time and no needs identified. CM will continue to follow and assist with discharge planning/needs. Singer Back Tender: Greta Parisi DCPIA - Discharge Planning Initial Assessment Updated by [id number]: Greta Parisi on 05/14/18 9:29 am * Is the patient Alert and Oriented? Yes * How many steps to enter\exit or inside your home? 1/0 * PCP Dr. Chauhan * Pharmacy [facility] * Preadmission Environment Home Alone * ADLs Independent * Equipment Glucometer Other Oxygen * Other Equipment Portable oxygen * List name and contact numbers for known caregivers / representatives who currently or will assist patient after discharge: [facility] - [phone] * Verbal permission to speak to the caregivers and representatives has been obtained from the patient. Yes * Community resources currently utilized Home Health * Please name any agencies selected above. [facility] * Additional services required to return to the preadmission environment? No * Can the patient safely return to the preadmission environment? Yes * Has this patient been hospitalized within the prior 30 days at any hospital? Yes Coverage Notice Reviewer: [id number] - Greta Parisi Notice Issued Date-Time: 05/16/2018 9:15 Notice Type: IM Discharge Notice Notice Delivered To: Patient Relationship to Patient: Self Tv Production Assistant Name: Delivery Method: HAND - Hand Delivered Noreen Days: Prior Verbal Notification: Recipient Understood Notice: Yes Recipient Signature: Yes Med Rec Note Co-signed by Attending: Coverage Notice Comment: IMM explained, signed, copy given and original placed in MR Last DP export: 05/16/18 8:26 Patient Name: ENOC GARVEY Page 19986 at 0827 All edits/amendments must be made on the electronic document DICTATION DATE: 05/17/18825 TREASURY SPECIALIST: ROBERTO 05/17/18825 RPT#: [id number] DC DATE:05/16/18 STATUS: DIS IN [facility] [address] [place] [address] END OF REPORT
[~2018-05-12 00:36] MED LIST changes: +HYDROCODON-ACE1 EAC7 PO; +LEVOFLOXACIN500 MG PO
[2018-05-12 03:13] VITALS: BP 129/63
[2018-05-12 06:03] VITALS: BP 129/63
[2018-05-12 07:49] LABS: BASOPHILS 0.3 % (0-2); EOSINOPHILS 4.7 % (0-7); HEMATOCRIT 27.2 % (36.0-48.0); IMMATURE GRANULOCYTES 0.5 % (0-5); LYMPHOCYTES 24.1 % (15-50); MCH 30.7 pg (26.0-34.0); MCHC 33.1 g/dL (31.0-37.0); MCV 92.8 fL (80.0-100.0); MEAN PLATELET VOLUME 8.6 fL (7.4-10.4); MONOCYTES 12.3 % (2-11); NEUTROPHILS 58.1 % (40-80); PLATELET COUNT 216 10x3/uL (130-400); RBC 2.93 10x6/uL (4.00-5.40); RDW 13.7 % (11.5-14.5); WBC 5.9 10x3/uL (4.8-10.8)
[2018-05-12 08:08] LABS: ALBUMIN 2.1 g/dL (3.4-5.0); ALKALINE PHOSPHATASE 44 U/L (46-116); ALT (SGPT) 45 U/L (10-68); BILIRUBIN - TOTAL 0.28 mg/dL (0.2-1.3); CALC OSMOLALITY 272 mosm/kg (275-300); CARBON DIOXIDE 27.2 mmol/L (21.0-32.0); CHLORIDE - SERUM 103 mmol/L (98-107); CREATININE - SERUM 0.6 mg/dL (0.6-1.3); POTASSIUM - SERUM 3.1 mmol/L (3.5-5.1); PROTEIN - SERUM 5.9 g/dL (6.4-8.2); SODIUM 137 mmol/L (136-145); UREA NITROGEN 3 mg/dL (7-18); eGFR NON AFRICAN AMERICAN > 90 mL/min (90-120)
[2018-05-12 08:11] LABS: GLUCOSE 126 mg/dL (74-106)
[2018-05-12 14:11] VITALS: BP 133/68
[2018-05-12 17:27] LABS: APPEARANCE CLEAR (CLEAR); BILIRUBIN NEGATIVE (NEGATIVE); COLOR YELLOW (YELLOW); GLUCOSE NEGATIVE (NEGATIVE); KETONE SMALL mg/dL (NEGATIVE); NITRITE NEGATIVE (NEGATIVE); PROTEIN NEGATIVE (NEGATIVE); UROBILINOGEN NORMAL (NORMAL)
[2018-05-12 17:28] LABS: WHITE CELLS - URINE 0-5 /hpf (0-5)
[2018-05-12 17:29] LABS: BACTERIA MODERATE /hpf (NONE SEEN); EPITHELIAL CELLS 0-5 /hpf (0-5); RED CELLS - URINE 0-5 /hpf (0-5)
[2018-05-12 20:00] VITALS: BP 141/66
[2018-05-13 06:10] VITALS: BP 130/69
[2018-05-13 08:21] VITALS: BP 139/69
[2018-05-13 12:38] VITALS: BP 144/59
[2018-05-13 13:16] VITALS: Ht 172.7 cm; Wt 86.2 kg
[2018-05-13 20:00] VITALS: BP 127/76
[2018-05-14 04:58] LABS: CALCIUM 7.9 mg/dL (8.5-10.1); CARBON DIOXIDE 26.4 mmol/L (21.0-32.0); CHLORIDE - SERUM 101 mmol/L (98-107); CREATININE - SERUM 0.6 mg/dL (0.6-1.3); GLUCOSE 169 mg/dL (74-106); SODIUM 136 mmol/L (136-145); eGFR NON AFRICAN AMERICAN > 90 mL/min (90-120)
[2018-05-14 05:00] VITALS: BP 118/61
[2018-05-14 05:11] LABS: CALC OSMOLALITY 272 mosm/kg (275-300); POTASSIUM - SERUM 3.6 mmol/L (3.5-5.1); UREA NITROGEN 4 mg/dL (7-18)
[2018-05-14 05:32] LABS: BASOPHILS 0.1 % (0-2); EOSINOPHILS 3.8 % (0-7); HEMATOCRIT 29.4 % (36.0-48.0); HEMOGLOBIN 9.8 g/dL (12-16); IMMATURE GRANULOCYTES 0.4 % (0-5); MCHC 33.3 g/dL (31.0-37.0); MEAN PLATELET VOLUME 8.7 fL (7.4-10.4); MONOCYTES 11.2 % (2-11); NEUTROPHILS 63.5 % (40-80); RBC 3.16 10x6/uL (4.00-5.40); RDW 13.7 % (11.5-14.5)
[2018-05-14 05:33] LABS: PLATELET COUNT 308 10x3/uL (130-400); WBC 7.7 10x3/uL (4.8-10.8)
[2018-05-14 10:27] VITALS: BP 139/73
[2018-05-14 16:07] VITALS: BP 142/89
[2018-05-14 20:00] VITALS: BP 120/75
[2018-05-15 02:01] VITALS: BP 94/62
[2018-05-15 05:00] VITALS: BP 110/69
[2018-05-15 08:26] VITALS: BP 119/74
[2018-05-15] MEDS ORDERED: KLONOPIN0.5 MG PO (09:36)
[2018-05-15 12:16] VITALS: BP 114/68
[2018-05-15 17:05] VITALS: BP 121/68
[2018-05-15 20:00] VITALS: BP 119/60
[2018-05-16 02:05] VITALS: BP 110/60
[2018-05-16 07:38] LABS: BASOPHILS 0.4 % (0-2); HEMATOCRIT 32.2 % (36.0-48.0); IMMATURE GRANULOCYTES 1.2 % (0-5); LYMPHOCYTES 26.2 % (15-50); MCH 31.2 pg (26.0-34.0); MCHC 34.2 g/dL (31.0-37.0); MCV 91.2 fL (80.0-100.0); MEAN PLATELET VOLUME 8.7 fL (7.4-10.4); MONOCYTES 12.1 % (2-11); NEUTROPHILS 54.1 % (40-80); RBC 3.53 10x6/uL (4.00-5.40); RDW 13.9 % (11.5-14.5); WBC 8.2 10x3/uL (4.8-10.8)
[2018-05-16 07:51] LABS: ANION GAP 14.3 mmol/L (8-16); CALCIUM 8.2 mg/dL (8.5-10.1); CARBON DIOXIDE 25.1 mmol/L (21.0-32.0); CREATININE - SERUM 1.2 mg/dL (0.6-1.3); MAGNESIUM - SERUM 2.2 mg/dL (1.8-2.4); POTASSIUM - SERUM 3.4 mmol/L (3.5-5.1)
[2018-05-16 07:58] LABS: PLATELET COUNT 415 10x3/uL (130-400)
[2018-05-16 08:28] VITALS: BP 108/61
== END 2018-05-16 12:20 | disposition home or self-care (01) | DRG 389 ==
LOC: D.ER 00:36 → D.MS 01:53
PROVIDERS: Family Medicine; Surgery
PROC: 05HY33Z Insertion of Infusion Device into Upper Vein, Percutaneous Approach (ICD-10-PCS; principal; 2018-05-12)
DX: K56.690 Other partial intestinal obstruction (principal); F31.89 Other bipolar disorder; K57.92 Diverticulitis of intestine, part unspecified, without perforation or abscess without bleeding; J44.9 Chronic obstructive pulmonary disease, unspecified

== ENCOUNTER → 2018-06-05 09:29 | Outpatient (CLI) | payer MEDICARE, MEDICAID ==
[2018-05-13 13:16] VITALS: BMI 28.8
[~2018-06-05 09:29] MED LIST changes: +KLONOPIN0.5 MG PO; +PROVENTIL/2.5 MG/3 M INH
== END | disposition home or self-care (01) ==
LOC: D.RAD 09:29
DX: K57.32 Diverticulitis of large intestine without perforation or abscess without bleeding (principal)

== ENCOUNTER 2018-06-10 09:10 | Inpatient (IN) | payer MEDICARE, MEDICAID ==
[2018-06-07 10:50] LABS: HEMOGLOBIN 11.9 g/dL (12-16); MCH 30.4 pg (26.0-34.0); MCHC 33.1 g/dL (31.0-37.0); MCV 92.1 fL (80.0-100.0); MEAN PLATELET VOLUME 8.5 fL (7.4-10.4); RBC 3.91 10x6/uL (4.00-5.40); RDW 13.7 % (11.5-14.5); WBC 7.6 10x3/uL (4.8-10.8)
[2018-06-07 11:00] LABS: ANION GAP 11.6 mmol/L (8-16); CALCIUM 9.2 mg/dL (8.5-10.1); CARBON DIOXIDE 28.9 mmol/L (21.0-32.0); POTASSIUM - SERUM 3.5 mmol/L (3.5-5.1)
[~2018-06-10] VITALS: Ht 172.7 cm; Wt 79.4 kg
--- NOTE | ~2018-06-10 | MORECARE ---
CASE MANAGEMENT DISCHARGE SUMMARY PATIENT: ENOC GARVEY UNIT: [id number] ADM DATE: 06/10/18 AGE: 53 : 61 SEX: F ROOM/BED: D.2234 AUTHOR: TANGELA,DOC PHYSICIAN: REFERRING PHYSICIAN: EILEEN BURNETT MD DATE OF SERVICE: 06/11/18 Discharge Plan Patient Name: ENOC GARVEY Facility: [facility]:[place] : 1965 Planned Disposition: Home with Home Health Anticipated Discharge Date: Discharge Date: Expected LOS: Initial Reviewer: [id number] Initial Review Date: 06/11/2018 Generated: 06/11/18 4:51 pm Comments DCP- Discharge Planning Updated by [email or web address]: Greta Parisi on 06/11/18 2:[address] Patient Name: ENOC GARVEY Admission Status: Elective Accout number: [id number] Admission Date: 06-10-2018 : 1965 Admission Diagnosis:DVRTCLOS OF SM INT W/O PERFORATION OR ABSCESS W/O BLEED Attending: EILEEN BURNETT Current LOS: 1 Anticipated DC Date: Planned Disposition: Home with Home Health Primary Insurance: [facility] MEDICARE SOLUTIONS Discharge Planning Comments: CM met with patient to discuss discharge planning. She has been staying with her daughter, but plans on going home when discharged and resuming [facility]. She does still have her oxygen she uses as needed from [facility]. She is independent with all ADL's and IADL's. States her daughter has been driving her where she needs to go til she can drive again. States her daughter will take her home on discharge. CM will continue to follow and assist with discharge planning/needs. Perianesthesia Nurse: Greta Parisi DCPIA - Discharge Planning Initial Assessment Updated by [email or web address]: Greta Parisi on 06/11/18 3:25 pm * Is the patient Alert and Oriented? Yes * How many steps to enter\exit or inside your home? 1/0 * PCP Dr. Chauhan * [facility]acy [facility] * Preadmission Environment Home with Family * ADLs Independent * Equipment Glucometer Other Oxygen * Other Equipment Portable oxygen * List name and contact numbers for known caregivers / representatives who currently or will assist patient after discharge: Kelly - R - [phone] * Verbal permission to speak to the caregivers and representatives has been obtained from the patient. Yes * Community resources currently utilized Home Health * Please name any agencies selected above. [facility] * Additional services required to return to the preadmission environment? No * Can the patient safely return to the preadmission environment? Yes * Has this patient been hospitalized within the prior 30 days at any hospital? No Last DP export: 06/11/18 2:31 Patient Name: ENOC GARVEY Page 07601 at 1551 All edits/amendments must be made on the electronic document DICTATION DATE: 06/11/181550 INCOMING INSPECTOR: ROBERTO 06/11/181550 RPT#: [id number] DC DATE: STATUS: ADM IN [facility] [address] [place] [address] END OF REPORT
--- NOTE | ~2018-06-10 | MORECARE ---
CASE MANAGEMENT DISCHARGE SUMMARY PATIENT: ENOC GARVEY UNIT: [id number] ADM DATE: 06/10/18 AGE: 53 : 61 SEX: F ROOM/BED: D.2234 AUTHOR: ASHLEY HONEYCUTT PHYSICIAN: REFERRING PHYSICIAN: EILEEN BURNETT MD DATE OF SERVICE: 06/11/18 Discharge Plan Patient Name: ENOC GARVEY Facility: [facility]:[place] : 1965 Planned Disposition: Home with Home Health Anticipated Discharge Date: Discharge Date: Expected LOS: Initial Reviewer: [email or web address] Initial Review Date: 06/11/2018 Generated: 06/11/18 4:30 pm DCPIA - Discharge Planning Initial Assessment Updated by [email or web address]: Greta Parisi on 06/11/18 3:25 pm * Is the patient Alert and Oriented? Yes * How many steps to enter\exit or inside your home? 1/0 * PCP Dr. Chauhan * [facility]acy [facility] * Preadmission Environment Home with Family * ADLs Independent * Equipment Glucometer Other Oxygen * Other Equipment Portable oxygen * List name and contact numbers for known caregivers / representatives who currently or will assist patient after discharge: [facility] - [phone] * Verbal permission to speak to the caregivers and representatives has been obtained from the patient. Yes * Community resources currently utilized Home Health * Please name any agencies selected above. [facility] * Additional services required to return to the preadmission environment? No * Can the patient safely return to the preadmission environment? Yes * Has this patient been hospitalized within the prior 30 days at any hospital? No Patient Name: ENOC GARVEY Page 88725 at 1531 All edits/amendments must be made on the electronic document DICTATION DATE: 06/11/18 153 CENTER MAKER HAND: ROBERTO 06/11/18 153 RPT#: [id number] DC DATE: STATUS: ADM IN [facility] [address] [place] [address] END OF REPORT
--- NOTE | ~2018-06-10 | OP ---
PATIENT NAME: ENOC GARVEY MEDICAL RECORD: [id number] :61 LOCATION:D[id number] ADMISSION DATE:06/10/18 SURGEON: EILEEN BURNETT MD DATE OF OPERATION: 06/10/2018 SURGEON: Eileen Burnett MD (JJ) MAJOR DONOR COORDINATOR: Remedios Flood APRN PREOPERATIVE DIAGNOSES: History of perforated diverticulitis and diverting loop ileostomy. History of sigmoid colectomy. POSTOPERATIVE DIAGNOSES: History of perforated diverticulitis and diverting loop ileostomy. History of sigmoid colectomy. PROCEDURES PERFORMED: Exploratory laparotomy; extensive lysis of adhesions, greater than 50% of the operative case time; and small bowel resection. ANESTHESIA: General. ESTIMATED BLOOD LOSS: 300 cc. COMPLICATIONS: None. SPECIMENS: Small bowel resection. WOUND CLASS: Clean and contaminated. OPERATIVE COURSE: After consent was obtained, the patient was taken to the operating room and placed in supine position on the operating table. Next, general anesthesia was given via endotracheal intubation. Thereafter, time-out was taken to confirm the correct patient and procedure. The abdomen was prepped and draped in typical sterile fashion. An elliptical incision was made in the right lower quadrant around the right lower quadrant diverting loop ileostomy. The skin was incised with a #10 blade scalpel. Dissection was continued over the external oblique fascia using electrocautery. There were extensive adhesions of the small bowel mesentery with marked induration of the small bowel mesentery involving the loop ileostomy and the external oblique fascia. This dissection took considerably longer than normal. Meticulous dissection was performed until the external oblique fascia was identified on the base at the peritoneum and the small bowel. A circumferential dissection was then performed involving loop ileostomy. The right lower quadrant was markedly inflamed and indurated. The small bowel was unable to be mobilized. It was densely adherent to the pelvic sidewall as well as the pelvis. At this time, the fascial incision was extended both medially and laterally using the electrocautery. A medium Yuri retractor was placed. The next hour was spent performing extensive mobilization of the small bowel with lysis of adhesions. The proximal small bowel was normal with minimal adhesions. The cecum and right colon were soft and mobile with minimal adhesions. Once the extensive portion of the right lower quadrant and small bowel was able to be mobilized proximally and distally, it was decided to perform a small bowel resection. The small bowel resection probably totaled 20-25 cm. Healthy-appearing tissue at the terminal ileum was placed to healthy-appearing distal ileum. Enterotomies were made. A common enterotomy was created using the linear VALENTINA 75-mm stapler. The common enterotomy was then closed using second firing of the VALENTINA stapler. The OPERATIVE REPORT [id number] ENOC GARVEY mesentery was taken using the super jaw. The small bowel mesentery was passed off the field for permanent pathology. The staple line was imbricated using 3-0 Vicryl suture. The mesentery was reapproximated using 3-0 Vicryl suture. The abdomen was then copiously irrigated and suctioned with 2 liters of warmed normal saline. The small bowel was run from the ligament of Treitz to the terminal ileum. The anastomosis was intact. There was no evidence of bowel leak and no evidence of bleeding. All small bowel adhesions were freed during the process with no serosal defects noted. At this time, the small bowel was extracorporealized. It was run from the cecum again to the terminal ileum with extensive evaluation and inspection of the small bowel with no evidence of small bowel injuries. The bowel was returned the abdomen. At this time, the remaining irrigation was used and suctioned from the abdomen. The fascia was closed with interrupted [id number] #1 Prolene sutures. A Hockessin dressing was placed into the subcutaneous space. The skin was reapproximated using perfecto. At the end of the case, all needle and instrument counts were correct. No complications occurred. The patient was extubated and transferred to the PACU in stable condition. TRANSINT:[id number] Voice Confirmation ID: [id number] DOCUMENT ID: [id number] EILEEN BURNETT MD at 1853 CC: [id number] DICTATION DATE: 06/10/18 144 SHIPS OR BARGES LOADER: 06/10/18 1808 ADM IN [facility] [address] [place] [address]
--- NOTE | ~2018-06-10 | MORECARE ---
CASE MANAGEMENT DISCHARGE SUMMARY PATIENT: ENOC GARVEY UNIT: [id number] ADM DATE: 06/10/18 AGE: 53 : 61 SEX: F ROOM/BED: D.2234 AUTHOR: ASHLEY HONEYCUTT PHYSICIAN: REFERRING PHYSICIAN: EILEEN BURNETT MD DATE OF SERVICE: 06/13/18 Discharge Plan Patient Name: ENOC GARVEY Facility: [facility]:[place] : 1965 Planned Disposition: Home with Home Health Anticipated Discharge Date: Discharge Date: Expected LOS: Initial Reviewer: [email or web address] Initial Review Date: 06/11/2018 Generated: 06/13/18 2:48 pm Comments DCP- Discharge Planning Updated by [email or web address]: Greta Parisi on 06/13/18 12:[address] Received order for discharge. She is receiving potassium IV for low serum potassium this am. Nurse advised she will need a repeat potassium post infusion. I called Lissette with [facility] and they will resume care, clinical faxed. I did speak with Remedios concerning low potassium and she states Dr. Burnett states it will come up with regular diet. States she is still refusing blood products. CM will continue to follow and assist with discharge planning. DCP- Discharge Planning Updated by [email or web address]: Greta Parisi on 06/11/18 2:[address] Patient Name: ENOC GARVEY Admission Status: Elective Accout number: [id number] Admission Date: 06-10-2018 : 1965 Admission Diagnosis:DVRTCLOS OF SM INT W/O PERFORATION OR ABSCESS W/O BLEED Attending: EILEEN BURNETT Current LOS: 1 Anticipated DC Date: Planned Disposition: Home with Home Health Primary Insurance: [facility] MEDICARE SOLUTIONS Discharge Planning Comments: CM met with patient to discuss discharge planning. She has been staying with her daughter, but plans on going home when discharged and resuming [facility]. She does still have her oxygen she uses as needed from [facility]. She is independent with all ADL's and IADL's. States her daughter has been driving her where she needs to go til she can drive again. States her daughter will take her home on discharge. CM will continue to follow and assist with discharge planning/needs. Child Welfare Worker: Greta Parisi DCPIA - Discharge Planning Initial Assessment Updated by [email or web address]: Greta Parisi on 06/11/18 3:25 pm * Is the patient Alert and Oriented? Yes * How many steps to enter\exit or inside your home? 1/0 * PCP Dr. Chauhan * Pharmacy [facility] * Preadmission Environment Home with Family * ADLs Independent * Equipment Glucometer Other Oxygen * Other Equipment Portable oxygen * List name and contact numbers for known caregivers / representatives who currently or will assist patient after discharge: [facility] - [phone] * Verbal permission to speak to the caregivers and representatives has been obtained from the patient. Yes * Community resources currently utilized Home Health * Please name any agencies selected above. [facility] * Additional services required to return to the preadmission environment? No * Can the patient safely return to the preadmission environment? Yes * Has this patient been hospitalized within the prior 30 days at any hospital? No External Providers [facility] [place] Next Contact Date: Service Request Date: Service Type: Resolution: Reviewer: Comments: Coverage Notice Reviewer: [email or web address] - Greta Parisi Notice Issued Date-Time: 06/13/2018 13:43 Notice Type: IM Discharge Notice Notice Delivered To: Patient Relationship to Patient: Self Copy Chaser Name: Delivery Method: HAND - Hand Delivered Noreen Days: Prior Verbal Notification: Recipient Understood Notice: Yes Recipient Signature: Yes Med Rec Note Co-signed by Attending: Coverage Notice Comment: IMM explained, signed, copy given, original placed in MR Last DP export: 06/13/18 12:41 Patient Name: ENOC GARVEY Page 14929 at 1348 All edits/amendments must be made on the electronic document DICTATION DATE: 06/13/181347 BRANCH SERVICE LEADER: ROBERTO 06/13/18 1348 RPT#: [id number] DC DATE: STATUS: ADM IN [facility] [address] [place] [address] END OF REPORT
--- NOTE | ~2018-06-10 | MORECARE ---
CASE MANAGEMENT DISCHARGE SUMMARY PATIENT: ENOC GARVEY UNIT: [id number] ADM DATE: 06/10/18 AGE: 53 : 61 SEX: F ROOM/BED: D.2234 AUTHOR: ASHLEY HONEYCUTT PHYSICIAN: REFERRING PHYSICIAN: EILEEN BURNETT MD DATE OF SERVICE: 06/13/18 Discharge Plan Patient Name: ENOC GARVEY Facility: [facility]:[place] : 1965 Planned Disposition: Home with Home Health Anticipated Discharge Date: Discharge Date: Expected LOS: Initial Reviewer: [email or web address] Initial Review Date: 06/11/2018 Generated: 06/13/18 2:41 pm Comments DCP- Discharge Planning Updated by [email or web address]: Greta Parisi on 06/13/18 12:[address] Received order for discharge. She is receiving potassium IV for low serum potassium this am. Nurse advised she will need a repeat potassium post infusion. I called Lissette with [facility] and they will resume care, clinical faxed. I did speak with Remedios concerning low potassium and she states Dr. Burnett states it will come up with regular diet. States she is still refusing blood products. CM will continue to follow and assist with discharge planning. DCP- Discharge Planning Updated by [email or web address]: Greta Parisi on 06/11/18 2:[address] Patient Name: ENOC GARVEY Admission Status: Elective Accout number: [id number] Admission Date: 06-10-2018 : 1965 Admission Diagnosis:DVRTCLOS OF SM INT W/O PERFORATION OR ABSCESS W/O BLEED Attending: EILEEN BURNETT Current LOS: 1 Anticipated DC Date: Planned Disposition: Home with Home Health Primary Insurance: [facility] MEDICARE SOLUTIONS Discharge Planning Comments: CM met with patient to discuss discharge planning. She has been staying with her daughter, but plans on going home when discharged and resuming [facility]. She does still have her oxygen she uses as needed from [facility]. She is independent with all ADL's and IADL's. States her daughter has been driving her where she needs to go til she can drive again. States her daughter will take her home on discharge. CM will continue to follow and assist with discharge planning/needs. Call Center Nurse: Greta Parisi DCPIA - Discharge Planning Initial Assessment Updated by [email or web address]: Greta Parisi on 06/11/18 3:25 pm * Is the patient Alert and Oriented? Yes * How many steps to enter\exit or inside your home? 1/0 * PCP Dr. Chauhan * Pharmacy [facility] * Preadmission Environment Home with Family * ADLs Independent * Equipment Glucometer Other Oxygen * Other Equipment Portable oxygen * List name and contact numbers for known caregivers / representatives who currently or will assist patient after discharge: [facility] - [phone] * Verbal permission to speak to the caregivers and representatives has been obtained from the patient. Yes * Community resources currently utilized Home Health * Please name any agencies selected above. [facility] * Additional services required to return to the preadmission environment? No * Can the patient safely return to the preadmission environment? Yes * Has this patient been hospitalized within the prior 30 days at any hospital? No Last DP export: 06/11/18 2:51 Patient Name: ENOC GARVEY Page 83578 at 1341 All edits/amendments must be made on the electronic document DICTATION DATE: 06/13/18 1341 SPRAY BOOTH OPERATOR: ROBERTO 06/13/18 1341 RPT#: [id number] DC DATE: STATUS: ADM IN [facility] [address] [place] [address] END OF REPORT
[~2018-06-10 09:10] MED LIST changes: -PROVENTIL/2.5 MG/3 M INH
[2018-06-10] MEDS ORDERED: PROVENTIL/2.5 MG/3 M INH (09:57)
[2018-06-10 10:03] VITALS: BP 107/68; BMI 26.6
[2018-06-10 15:58] VITALS: BP 110/45
[2018-06-10 16:06] VITALS: BP 110/45; BMI 26.6
[2018-06-10 16:13] VITALS: BP 110/45
[2018-06-10 20:33] VITALS: BP 110/45
[2018-06-11] VITALS (7 sets, daily range): BP systolic 97–120; BP diastolic 51–62; Ht 172.7 cm; Wt 79.4 kg
[2018-06-11 06:06] LABS: BASOPHILS 0.1 % (0-2); EOSINOPHILS 3.6 % (0-7); HEMATOCRIT 24.6 % (36.0-48.0); IMMATURE GRANULOCYTES 0.3 % (0-5); LYMPHOCYTES 13.6 % (15-50); MCH 30.1 pg (26.0-34.0); MCHC 32.5 g/dL (31.0-37.0); MCV 92.5 fL (80.0-100.0); MEAN PLATELET VOLUME 8.2 fL (7.4-10.4); MONOCYTES 7.6 % (2-11); NEUTROPHILS 74.8 % (40-80); PLATELET COUNT 240 10x3/uL (130-400); RBC 2.66 10x6/uL (4.00-5.40); RDW 14.3 % (11.5-14.5); WBC 7.5 10x3/uL (4.8-10.8)
[2018-06-11 06:26] LABS: ANION GAP 13.6 mmol/L (8-16); CARBON DIOXIDE 21.8 mmol/L (21.0-32.0); POTASSIUM - SERUM 4.4 mmol/L (3.5-5.1)
[2018-06-11 06:55] LABS: CALCIUM 6.9 mg/dL (8.5-10.1)
[2018-06-12 01:39] VITALS: BP 124/64
[2018-06-12 05:58] VITALS: BP 117/63
[2018-06-12 06:35] LABS: CALCIUM 7.4 mg/dL (8.5-10.1); CHLORIDE - SERUM 102 mmol/L (98-107); CREATININE - SERUM 0.8 mg/dL (0.6-1.3); SODIUM 140 mmol/L (136-145); eGFR NON AFRICAN AMERICAN 79 mL/min (90-120)
[2018-06-12 06:37] LABS: CALC OSMOLALITY 280 mosm/kg (275-300); CARBON DIOXIDE 27.6 mmol/L (21.0-32.0); GLUCOSE 195 mg/dL (74-106); POTASSIUM - SERUM 3.1 mmol/L (3.5-5.1); UREA NITROGEN 5 mg/dL (7-18)
[2018-06-12 06:42] LABS: BASOPHILS 0.1 % (0-2); EOSINOPHILS 0.3 % (0-7); HEMATOCRIT 23.2 % (36.0-48.0); HEMOGLOBIN 7.6 g/dL (12-16); IMMATURE GRANULOCYTES 0.2 % (0-5); LYMPHOCYTES 6.2 % (15-50); MCH 29.7 pg (26.0-34.0); MCHC 32.8 g/dL (31.0-37.0); MCV 90.6 fL (80.0-100.0); MEAN PLATELET VOLUME 8.5 fL (7.4-10.4); MONOCYTES 6.7 % (2-11); NEUTROPHILS 86.5 % (40-80); PLATELET COUNT 258 10x3/uL (130-400); RBC 2.56 10x6/uL (4.00-5.40); RDW 14.4 % (11.5-14.5)
[2018-06-12 08:48] VITALS: BP 123/55
[2018-06-12 12:45] VITALS: BP 105/40
[2018-06-12 16:46] VITALS: BP 120/59
[2018-06-12 21:25] VITALS: BP 106/53
[2018-06-13 04:23] VITALS: BP 114/60
[2018-06-13 04:31] LABS: BASOPHILS 0.1 % (0-2); EOSINOPHILS 4.4 % (0-7); HEMATOCRIT 21.7 % (36.0-48.0); IMMATURE GRANULOCYTES 0.2 % (0-5); LYMPHOCYTES 17.9 % (15-50); MCHC 33.2 g/dL (31.0-37.0); MCV 90.4 fL (80.0-100.0); MEAN PLATELET VOLUME 8.4 fL (7.4-10.4); MONOCYTES 9.2 % (2-11); NEUTROPHILS 68.2 % (40-80); PLATELET COUNT 252 10x3/uL (130-400); RDW 14.1 % (11.5-14.5); WBC 8.4 10x3/uL (4.8-10.8)
[2018-06-13 04:56] LABS: CALC OSMOLALITY 277 mosm/kg (275-300); CALCIUM 7.8 mg/dL (8.5-10.1); CARBON DIOXIDE 32.8 mmol/L (21.0-32.0); CHLORIDE - SERUM 98 mmol/L (98-107); CREATININE - SERUM 0.7 mg/dL (0.6-1.3); GLUCOSE 149 mg/dL (74-106); SODIUM 139 mmol/L (136-145); UREA NITROGEN 4 mg/dL (7-18); eGFR NON AFRICAN AMERICAN > 90 mL/min (90-120)
[2018-06-13 05:11] LABS: POTASSIUM - SERUM 2.5 mmol/L (3.5-5.1)
[2018-06-13 05:12] LABS: HEMOGLOBIN 7.2 g/dL (12-16)
[2018-06-13 08:30] VITALS: BP 113/63
[2018-06-13 18:51] VITALS: BP 142/83
[2018-06-13 21:19] VITALS: BP 117/54
== END 2018-06-13 21:30 | disposition home health service (06) | DRG 330 ==
LOC: D.MS 09:10 → D.SDCHOLD 09:10 → D.MS 15:37
PROVIDERS: Anesthesiology; Surgery
PROC: 0DBB0ZZ Excision of Ileum, Open Approach (ICD-10-PCS; principal; 2018-06-10 10:15)
DX: K57.10 Diverticulosis of small intestine without perforation or abscess without bleeding (principal); F31.89 Other bipolar disorder; D62 Acute posthemorrhagic anemia; E11.9 Type 2 diabetes mellitus without complications; K21.9 Gastro-esophageal reflux disease without esophagitis; Z72.0 Tobacco use

== ENCOUNTER 2018-06-27 14:14 | Inpatient (IN) | payer MEDICARE, MEDICAID ==
[~2018-06-27] VITALS: Ht 172.7 cm; Wt 79.8 kg
[~2018-06-27 14:14] MED LIST changes: +PROVENTIL/2.5 MG/3 M INH
[2018-06-27 14:40] VITALS: BP 124/71
[2018-06-27 16:00] VITALS: BP 119/61
[2018-06-27 18:12] LABS: BASOPHILS 0.2 % (0-2); EOSINOPHILS 3.3 % (0-7); HEMATOCRIT 25.3 % (36.0-48.0); IMMATURE GRANULOCYTES 0.2 % (0-5); LYMPHOCYTES 24.2 % (15-50); MCH 27.9 pg (26.0-34.0); MCHC 31.6 g/dL (31.0-37.0); MCV 88.2 fL (80.0-100.0); MEAN PLATELET VOLUME 8.2 fL (7.4-10.4); MONOCYTES 10.2 % (2-11); NEUTROPHILS 61.9 % (40-80); PLATELET COUNT 282 10x3/uL (130-400); RBC 2.87 10x6/uL (4.00-5.40); RDW 14.1 % (11.5-14.5); WBC 6.4 10x3/uL (4.8-10.8)
[2018-06-27 18:17] LABS: APTT 22.7 SECONDS (22.8-39.4); INR 1.19 (0.85-1.17); PROTIME 14.6 SECONDS (11.6-15.0)
[2018-06-27 18:23] LABS: ALBUMIN 2.6 g/dL (3.4-5.0); ALKALINE PHOSPHATASE 68 U/L (46-116); ALT (SGPT) 19 U/L (10-68); BILIRUBIN - TOTAL 0.26 mg/dL (0.2-1.3); CALC OSMOLALITY 277 mosm/kg (275-300); CALCIUM 8.3 mg/dL (8.5-10.1); CARBON DIOXIDE 27.1 mmol/L (21.0-32.0); CHLORIDE - SERUM 100 mmol/L (98-107); CREATININE - SERUM 0.8 mg/dL (0.6-1.3); GLUCOSE 131 mg/dL (74-106); SODIUM 139 mmol/L (136-145); UREA NITROGEN 8 mg/dL (7-18); eGFR NON AFRICAN AMERICAN 79 mL/min (90-120)
[2018-06-27 19:29] VITALS: BP 124/71; BMI 26.8
[2018-06-27 20:00] VITALS: BP 122/65
[2018-06-27 23:41] VITALS: BP 122/65
[2018-06-28 04:00] VITALS: BP 101/55
[2018-06-28 06:58] LABS: BASOPHILS 0.2 % (0-2); EOSINOPHILS 4.8 % (0-7); HEMATOCRIT 21.4 % (36.0-48.0); IMMATURE GRANULOCYTES 0.2 % (0-5); LYMPHOCYTES 35.9 % (15-50); MCH 28.5 pg (26.0-34.0); MCHC 31.8 g/dL (31.0-37.0); MCV 89.5 fL (80.0-100.0); MEAN PLATELET VOLUME 8.3 fL (7.4-10.4); MONOCYTES 12.3 % (2-11); NEUTROPHILS 46.6 % (40-80); PLATELET COUNT 241 10x3/uL (130-400); RBC 2.39 10x6/uL (4.00-5.40); RDW 14.3 % (11.5-14.5)
[2018-06-28 07:09] LABS: ANION GAP 12.5 mmol/L (8-16); CALCIUM 7.9 mg/dL (8.5-10.1); CARBON DIOXIDE 25.5 mmol/L (21.0-32.0); CREATININE - SERUM 0.9 mg/dL (0.6-1.3); MAGNESIUM - SERUM 1.8 mg/dL (1.8-2.4)
[2018-06-28 07:10] LABS: HEMOGLOBIN 6.8 g/dL (12-16)
[2018-06-28 08:28] LABS: PHOSPHOROUS 4.2 mg/dL (2.5-4.9)
[2018-06-28 08:51] VITALS: BP 131/64
[2018-06-28 12:15] VITALS: Ht 172.7 cm; Wt 79.8 kg
[2018-06-28 20:28] VITALS: BP 119/53
[2018-06-28 23:54] VITALS: BP 92/52
[2018-06-29 04:29] LABS: BASOPHILS 0.2 % (0-2); EOSINOPHILS 5.8 % (0-7); HEMATOCRIT 23.6 % (36.0-48.0); IMMATURE GRANULOCYTES 0.2 % (0-5); LYMPHOCYTES 25.5 % (15-50); MCH 28.1 pg (26.0-34.0); MCHC 30.9 g/dL (31.0-37.0); MCV 90.8 fL (80.0-100.0); MEAN PLATELET VOLUME 8.2 fL (7.4-10.4); MONOCYTES 13.5 % (2-11); NEUTROPHILS 54.8 % (40-80); PLATELET COUNT 240 10x3/uL (130-400); RDW 14.7 % (11.5-14.5); WBC 4.5 10x3/uL (4.8-10.8)
[2018-06-29 04:39] LABS: HEMOGLOBIN 7.3 g/dL (12-16)
[2018-06-29 04:45] LABS: ANION GAP 9.6 mmol/L (8-16); CALCIUM 7.9 mg/dL (8.5-10.1); CARBON DIOXIDE 27.9 mmol/L (21.0-32.0); CREATININE - SERUM 0.9 mg/dL (0.6-1.3)
[2018-06-29 04:46] LABS: MAGNESIUM - SERUM 2.4 mg/dL (1.8-2.4)
[2018-06-29 04:47] LABS: POTASSIUM - SERUM 5.5 mmol/L (3.5-5.1)
[2018-06-29 09:00] VITALS: BP 108/54
[2018-06-29 12:30] VITALS: BP 118/57
[2018-06-29 16:17] VITALS: BP 116/96
[2018-06-29 20:27] VITALS: BP 121/59
[2018-06-29 23:49] VITALS: BP 96/53
[2018-06-30 03:50] LABS: BASOPHILS 0.2 % (0-2); EOSINOPHILS 8.2 % (0-7); HEMATOCRIT 24.5 % (36.0-48.0); HEMOGLOBIN 7.6 g/dL (12-16); IMMATURE GRANULOCYTES 0.2 % (0-5); LYMPHOCYTES 32.5 % (15-50); MCH 27.8 pg (26.0-34.0); MCV 89.7 fL (80.0-100.0); MEAN PLATELET VOLUME 8.3 fL (7.4-10.4); MONOCYTES 12.6 % (2-11); NEUTROPHILS 46.3 % (40-80); PLATELET COUNT 252 10x3/uL (130-400); RBC 2.73 10x6/uL (4.00-5.40); RDW 14.4 % (11.5-14.5)
[2018-06-30 04:14] LABS: ANION GAP 11.5 mmol/L (8-16); CALCIUM 7.8 mg/dL (8.5-10.1); CARBON DIOXIDE 27.9 mmol/L (21.0-32.0); CREATININE - SERUM 0.9 mg/dL (0.6-1.3); MAGNESIUM - SERUM 1.9 mg/dL (1.8-2.4); PHOSPHOROUS 3.4 mg/dL (2.5-4.9); POTASSIUM - SERUM 3.4 mmol/L (3.5-5.1)
[2018-06-30 04:16] VITALS: BP 141/50
[2018-06-30 09:31] VITALS: BP 121/65
--- NOTE | 2018-06-30 10:06 | MORECARE ---
CASE MANAGEMENT DISCHARGE SUMMARY PATIENT: ENOC GARVEY UNIT: [id number] ADM DATE: 06/27/18 AGE: 53 : 61 SEX: F ROOM/BED: D.2233 AUTHOR: ASHLEY HONEYCUTT PHYSICIAN: REFERRING PHYSICIAN: EILEEN BURNETT MD DATE OF SERVICE: 06/30/18 Discharge Plan Patient Name: ENOC GARVEY Facility: [facility]:[place] : 1965 Planned Disposition: Home Anticipated Discharge Date: 07/02/18 Discharge Date: Expected LOS: 5 Initial Reviewer: [id number] Initial Review Date: 06/30/2018 Generated: 06/30/18 11:05 am Patient Name: ENOC GARVEY Page 19513 at 1006 All edits/amendments must be made on the electronic document DICTATION DATE: 06/30/18 1005 PIECE MEAT TRIMMER: ROBERTO 06/30/18 1005 RPT#: [id number] DC DATE: STATUS: ADM IN [facility] [address] [place] [address] END OF REPORT
--- NOTE | 2018-06-30 10:19 | MORECARE ---
CASE MANAGEMENT DISCHARGE SUMMARY PATIENT: ENOC GARVEY UNIT: [id number] ADM DATE: 06/27/18 AGE: 53 : 61 SEX: F ROOM/BED: D.2233 AUTHOR: TANGELA,DOC PHYSICIAN: REFERRING PHYSICIAN: EILEEN BURNETT MD DATE OF SERVICE: 06/30/18 Discharge Plan Patient Name: ENOC GARVEY Facility: [facility]:[place] : 1965 Planned Disposition: Home Anticipated Discharge Date: 07/02/18 Discharge Date: Expected LOS: 5 Initial Reviewer: [email or web address] Initial Review Date: 06/30/2018 Generated: 06/30/18 11:18 am Comments DCP- Discharge Planning Updated by [email or web address]: Raven Hernandez on 06/30/18 9:[address] Patient Name: ENOC GARVEY Admission Status: Urgent Accout number: [id number] Admission Date: 06-27-2018 : 1965 Admission Diagnosis:FISTULA OF INTESTINE Attending: EILEEN BURNETT Current LOS: 3 Anticipated DC Date: 07-02-2018 Planned Disposition: Home Primary Insurance: [facility] MEDICARE SOLUTIONS Discharge Planning Comments: CM MET WITH PATIENT REGARDING D/C NEEDS AND PLANS. PATIENT STATED SHE HAS A CAREGIVER (DAVID LEMUS) LIVING WITH HER AND SHE OR FAMILY WILL DRIVE HER HOME AT DISCHARGE. THERE IS ONE STEP TO ENTER HOME AND NO STAIRS ONCE INSIDE. PATIENT STATED SHE HAS HELP WITH HER MEDICATION AND HAS A WALKER, OXYGEN, AND GLUCOMETER AT HOME. PATIENTS PCP IS DR. RUBIO AND PHARMACY IS [facility]. PATIENT IS CURRENT WITH [facility]. CM WILL CONTINUE TO FOLLOW PATIENT WITH D/C NEEDS AND PLANS. PCP DR. RUBIO [facility] DAVID LEMUS (CAREGIVER) [phone] MANDEEP (DAUGHTER) [phone] Distance Education Coordinator: Raven Hernandez DCPIA - Discharge Planning Initial Assessment Updated by [email or web address]: Raven Hernandez on 06/30/18 10:12 am * Is the patient Alert and Oriented? Yes * How many steps to enter\exit or inside your home? * PCP DR. RUBIO * [facility] * Preadmission Environment Home with Family * ADLs Partial Dependent * Partial ADLs (Assistance needed) Medication Management * Equipment Glucometer Oxygen Walker * List name and contact numbers for known caregivers / representatives who currently or will assist patient after discharge: DAVID LEMUS (CAREGIVER) [phone] MANDEEP NEWMAN (DAUGHTER) [phone] * Verbal permission to speak to the caregivers and representatives has been obtained from the patient. Yes * Community resources currently utilized Home Health * Please name any agencies selected above. [facility] * Additional services required to return to the preadmission environment? Yes * Can the patient safely return to the preadmission environment? Yes * Has this patient been hospitalized within the prior 30 days at any hospital? Yes Last DP export: 06/30/18 9:06 Patient Name: ENOC GARVEY Page 16700 at 1019 All edits/amendments must be made on the electronic document DICTATION DATE: 06/30/18 1018 MUSIC VIDEO DIRECTOR: ROBERTO 06/30/18 1018 RPT#: [id number] DC DATE: STATUS: ADM IN [facility] [address] [place] [address] END OF REPORT
[2018-06-30 12:00] VITALS: BP 130/72
[2018-06-30 16:00] VITALS: BP 128/68
[2018-06-30 21:02] VITALS: BP 121/55; BP 146/44
[2018-07-01] VITALS: BP 109/54; BP 174/99
[2018-07-01 04:00] VITALS: BP 137/55
[2018-07-01 06:51] LABS: BASOPHILS 0.4 % (0-2); EOSINOPHILS 8.4 % (0-7); HEMATOCRIT 25.4 % (36.0-48.0); HEMOGLOBIN 7.9 g/dL (12-16); IMMATURE GRANULOCYTES 0.4 % (0-5); LYMPHOCYTES 26.3 % (15-50); MCH 27.7 pg (26.0-34.0); MCHC 31.1 g/dL (31.0-37.0); MCV 89.1 fL (80.0-100.0); MEAN PLATELET VOLUME 8.5 fL (7.4-10.4); MONOCYTES 14.2 % (2-11); NEUTROPHILS 50.3 % (40-80); PLATELET COUNT 272 10x3/uL (130-400); RBC 2.85 10x6/uL (4.00-5.40); RDW 14.2 % (11.5-14.5); WBC 5.4 10x3/uL (4.8-10.8)
[2018-07-01 06:54] LABS: ANION GAP 11.6 mmol/L (8-16); CALCIUM 7.9 mg/dL (8.5-10.1); CARBON DIOXIDE 27.9 mmol/L (21.0-32.0); MAGNESIUM - SERUM 1.8 mg/dL (1.8-2.4); PHOSPHOROUS 2.7 mg/dL (2.5-4.9); POTASSIUM - SERUM 3.5 mmol/L (3.5-5.1)
[2018-07-01 09:39] VITALS: BP 110/63
[2018-07-01 13:21] VITALS: BP 119/58
[2018-07-01 17:20] VITALS: BP 153/75
[2018-07-01 20:46] VITALS: BP 120/55
[2018-07-02 00:08] VITALS: BP 139/75
[2018-07-02 04:22] VITALS: BP 111/60
[2018-07-02 06:33] LABS: ANION GAP 12.5 mmol/L (8-16); CALCIUM 7.8 mg/dL (8.5-10.1); CARBON DIOXIDE 27.1 mmol/L (21.0-32.0); CREATININE - SERUM 0.9 mg/dL (0.6-1.3); MAGNESIUM - SERUM 1.8 mg/dL (1.8-2.4); POTASSIUM - SERUM 3.6 mmol/L (3.5-5.1)
[2018-07-02 06:35] LABS: PHOSPHOROUS 4.9 mg/dL (2.5-4.9)
[2018-07-02 07:36] LABS: BASOPHILS 0.4 % (0-2); EOSINOPHILS 7.8 % (0-7); HEMATOCRIT 27.2 % (36.0-48.0); HEMOGLOBIN 8.5 g/dL (12-16); IMMATURE GRANULOCYTES 0.2 % (0-5); LYMPHOCYTES 26.8 % (15-50); MCH 27.7 pg (26.0-34.0); MCHC 31.3 g/dL (31.0-37.0); MCV 88.6 fL (80.0-100.0); MEAN PLATELET VOLUME 8.5 fL (7.4-10.4); MONOCYTES 12.6 % (2-11); NEUTROPHILS 52.2 % (40-80); PLATELET COUNT 304 10x3/uL (130-400); RBC 3.07 10x6/uL (4.00-5.40); RDW 14.3 % (11.5-14.5); WBC 5.5 10x3/uL (4.8-10.8)
[2018-07-02 08:40] VITALS: BP 103/50
[2018-07-02 12:40] VITALS: BP 109/55
[2018-07-02 16:00] VITALS: BP 133/69
[2018-07-02 20:00] VITALS: BP 144/73
[2018-07-03] VITALS: BP 125/56
[2018-07-03 04:00] VITALS: BP 108/62
[2018-07-03 05:10] LABS: BASOPHILS 0.4 % (0-2); EOSINOPHILS 8.1 % (0-7); HEMATOCRIT 26.9 % (36.0-48.0); HEMOGLOBIN 7.8 g/dL (12-16); IMMATURE GRANULOCYTES 0.6 % (0-5); LYMPHOCYTES 31.4 % (15-50); MCH 27.8 pg (26.0-34.0); MEAN PLATELET VOLUME 8.8 fL (7.4-10.4); NEUTROPHILS 48.5 % (40-80); PLATELET COUNT 276 10x3/uL (130-400); RBC 2.81 10x6/uL (4.00-5.40); RDW 14.9 % (11.5-14.5); WBC 4.8 10x3/uL (4.8-10.8)
[2018-07-03 05:14] LABS: MCV 95.7 fL (80.0-100.0)
[2018-07-03 07:51] LABS: ANION GAP 14.2 mmol/L (8-16); CALCIUM 8.1 mg/dL (8.5-10.1); CARBON DIOXIDE 26.8 mmol/L (21.0-32.0); MAGNESIUM - SERUM 1.9 mg/dL (1.8-2.4); PHOSPHOROUS 4.2 mg/dL (2.5-4.9)
[2018-07-03 08:51] VITALS: BP 111/56
[2018-07-03 16:00] VITALS: BP 129/67
[2018-07-03 21:55] VITALS: BP 122/66
[2018-07-04 02:09] VITALS: BP 106/60
[2018-07-04 05:15] VITALS: BP 119/60
[2018-07-04 07:55] LABS: ANION GAP 12.5 mmol/L (8-16); CALCIUM 7.8 mg/dL (8.5-10.1); CARBON DIOXIDE 26.4 mmol/L (21.0-32.0); MAGNESIUM - SERUM 1.9 mg/dL (1.8-2.4); PHOSPHOROUS 3.4 mg/dL (2.5-4.9); POTASSIUM - SERUM 3.9 mmol/L (3.5-5.1)
[2018-07-04 08:10] VITALS: BP 98/51
[2018-07-04 12:16] VITALS: BP 116/67
[2018-07-04 16:09] VITALS: BP 110/66
[2018-07-04 20:00] VITALS: BP 136/67
[2018-07-05] VITALS: BP 111/57
[2018-07-05 04:00] VITALS: BP 105/60
[2018-07-05 06:55] LABS: CALCIUM 7.3 mg/dL (8.5-10.1); CARBON DIOXIDE 22.9 mmol/L (21.0-32.0); CREATININE - SERUM 0.9 mg/dL (0.6-1.3); MAGNESIUM - SERUM 1.9 mg/dL (1.8-2.4); PHOSPHOROUS 2.6 mg/dL (2.5-4.9); POTASSIUM - SERUM 3.9 mmol/L (3.5-5.1)
[2018-07-05 08:29] VITALS: BP 98/56
--- NOTE | 2018-07-05 10:08 | MORECARE ---
CASE MANAGEMENT DISCHARGE SUMMARY PATIENT: ENOC GARVEY UNIT: [id number] ADM DATE: 06/27/18 AGE: 53 : 61 SEX: F ROOM/BED: D.2233 AUTHOR: TANGELA,DOC PHYSICIAN: REFERRING PHYSICIAN: EILEEN BURNETT MD DATE OF SERVICE: 07/05/18 Discharge Plan Patient Name: ENOC GARVEY Facility: [facility]:[place] : 1965 Planned Disposition: Home Anticipated Discharge Date: 07/02/18 Discharge Date: Expected LOS: 5 Initial Reviewer: [email or web address] Initial Review Date: 06/30/2018 Generated: 07/05/18 11:08 am Comments DCP- Discharge Planning Updated by [email or web address]: Raven Hernandez on 06/30/18 9:[address] Patient Name: ENOC GARVEY Admission Status: Urgent Accout number: [id number] Admission Date: 06-27-2018 : 1965 Admission Diagnosis:FISTULA OF INTESTINE Attending: EILEEN BURNETT Current LOS: 3 Anticipated DC Date: 07-02-2018 Planned Disposition: Home Primary Insurance: [facility] MEDICARE SOLUTIONS Discharge Planning Comments: CM MET WITH PATIENT REGARDING D/C NEEDS AND PLANS. PATIENT STATED SHE HAS A CAREGIVER (DAVID LEMUS) LIVING WITH HER AND SHE OR FAMILY WILL DRIVE HER HOME AT DISCHARGE. THERE IS ONE STEP TO ENTER HOME AND NO STAIRS ONCE INSIDE. PATIENT STATED SHE HAS HELP WITH HER MEDICATION AND HAS A WALKER, OXYGEN, AND GLUCOMETER AT HOME. PATIENTS PCP IS DR. RUBIO AND PHARMACY IS [facility]. PATIENT IS CURRENT WITH [facility]. CM WILL CONTINUE TO FOLLOW PATIENT WITH D/C NEEDS AND PLANS. PCP DR. RUBIO [facility] DAVID LEMUS (CAREGIVER) [phone] MANDEEP (DAUGHTER) [phone] Valet Cashier: Raven Hernandez DCPIA - Discharge Planning Initial Assessment Updated by [email or web address]: Raven Hernandez on 06/30/18 10:12 am * Is the patient Alert and Oriented? Yes * How many steps to enter\exit or inside your home? * PCP DR. RUBIO * [facility] * Preadmission Environment Home with Family * ADLs Partial Dependent * Partial ADLs (Assistance needed) Medication Management * Equipment Glucometer Oxygen Walker * List name and contact numbers for known caregivers / representatives who currently or will assist patient after discharge: DAVID LEMUS (CAREGIVER) [phone] MANDEEP NEWMAN (DAUGHTER) [phone] * Verbal permission to speak to the caregivers and representatives has been obtained from the patient. Yes * Community resources currently utilized Home Health * Please name any agencies selected above. [facility] * Additional services required to return to the preadmission environment? Yes * Can the patient safely return to the preadmission environment? Yes * Has this patient been hospitalized within the prior 30 days at any hospital? Yes External Providers External Provider: [facility] Next Contact Date: Service Request Date: Service Type: Resolution: Reviewer: Comments: External Provider: [facility] Next Contact Date: Service Request Date: Service Type: Resolution: Reviewer: Comments: Last DP export: 06/30/18 9:18 Patient Name: ENOC GARVEY Page 96731 at 1008 All edits/amendments must be made on the electronic document DICTATION DATE: 07/05/18 1007 SUPERVISOR POLICY CHANGE CLERKS: ROBERTO 07/05/18 1007 RPT#: [id number] DC DATE: STATUS: ADM IN [facility] [address] [place] [address] END OF REPORT
--- NOTE | 2018-07-05 10:17 | MORECARE ---
CASE MANAGEMENT DISCHARGE SUMMARY PATIENT: ENOC GARVEY UNIT: [id number] ADM DATE: 06/27/18 AGE: 53 : 61 SEX: F ROOM/BED: D.2233 AUTHOR: TANGELA,DOC PHYSICIAN: REFERRING PHYSICIAN: EILEEN BURNETT MD DATE OF SERVICE: 07/05/18 Discharge Plan Patient Name: ENOC GARVEY Facility: [facility]:[place] : 1965 Planned Disposition: Home Anticipated Discharge Date: 07/02/18 Discharge Date: Expected LOS: 5 Initial Reviewer: [email or web address] Initial Review Date: 06/30/2018 Generated: 07/05/18 11:17 am Comments DCP- Discharge Planning Updated by [email or web address]: Greta Parisi on 07/05/18 9:[address] I sent clinical to both [place] and [place] for a rose check for Vancomycin/Zosyn and TPN and all supplies. I called Lissette with [email or web address] [facility] and informed of possible discharge for Sunday or Sunday. CM will continue to follow and assist with discharge planning/needs. DCP- Discharge Planning Updated by [email or web address]: Raven Hernandez on 06/30/18 9:[address] Patient Name: ENOC GARVEY Admission Status: Urgent Accout number: [id number] Admission Date: 06-27-2018 : 1965 Admission Diagnosis:FISTULA OF INTESTINE Attending: EILEEN BURNETT Current LOS: 3 Anticipated DC Date: 07-02-2018 Planned Disposition: Home Primary Insurance: [facility] MEDICARE SOLUTIONS Discharge Planning Comments: CM MET WITH PATIENT REGARDING D/C NEEDS AND PLANS. PATIENT STATED SHE HAS A CAREGIVER (DAVID LEMUS) LIVING WITH HER AND SHE OR FAMILY WILL DRIVE HER HOME AT DISCHARGE. THERE IS ONE STEP TO ENTER HOME AND NO STAIRS ONCE INSIDE. PATIENT STATED SHE HAS HELP WITH HER MEDICATION AND HAS A WALKER, OXYGEN, AND GLUCOMETER AT HOME. PATIENTS PCP IS DR. RUBIO AND PHARMACY IS [facility]. PATIENT IS CURRENT WITH [facility]. CM WILL CONTINUE TO FOLLOW PATIENT WITH D/C NEEDS AND PLANS. PCP DR. RUBIO [facility] DAVID LEMUS (CAREGIVER) [phone] MANDEEP (DAUGHTER) [phone] Electrical Hardware Engineer: Raven Hernandez DCPIA - Discharge Planning Initial Assessment Updated by [email or web address]: Raven Hernandez on 06/30/18 10:12 am * Is the patient Alert and Oriented? Yes * How many steps to enter\exit or inside your home? * PCP DR. RUBIO * [facility] * Preadmission Environment Home with Family * ADLs Partial Dependent * Partial ADLs (Assistance needed) Medication Management * Equipment Glucometer Oxygen Walker * List name and contact numbers for known caregivers / representatives who currently or will assist patient after discharge: DAVID LEMUS (CAREGIVER) [phone] MANDEEP NEWMAN (DAUGHTER) [phone] * Verbal permission to speak to the caregivers and representatives has been obtained from the patient. Yes * Community resources currently utilized Home Health * Please name any agencies selected above. [facility] * Additional services required to return to the preadmission environment? Yes * Can the patient safely return to the preadmission environment? Yes * Has this patient been hospitalized within the prior 30 days at any hospital? Yes Last DP export: 07/05/18 9:08 am Patient Name: ENOC GARVEY Page 64777 at 1017 All edits/amendments must be made on the electronic document DICTATION DATE: 07/05/18 1016 PROFESSIONAL SERVICES SPECIALIST: DM 07/05/18 1016 RPT#: [id number] DC DATE: STATUS: ADM IN [facility] [address] [place] [address] END OF REPORT
--- NOTE | 2018-07-05 11:14 | MORECARE ---
CASE MANAGEMENT DISCHARGE SUMMARY PATIENT: ENOC GARVEY UNIT: [id number] ADM DATE: 06/27/18 AGE: 53 : 61 SEX: F ROOM/BED: D.2233 AUTHOR: TANGELA,DOC PHYSICIAN: REFERRING PHYSICIAN: EILEEN BURNETT MD DATE OF SERVICE: 07/05/18 Discharge Plan Patient Name: ENOC GARVEY Facility: [facility]:[place] : 1965 Planned Disposition: Home Anticipated Discharge Date: 07/02/18 Discharge Date: Expected LOS: 5 Initial Reviewer: [email or web address] Initial Review Date: 06/30/2018 Generated: 07/05/18 12:13 pm Comments DCP- Discharge Planning Updated by [email or web address]: Greta Parisi on 07/05/18 10:[address] Received a call from Sidra with [facility] and they are not in Network with [facility] and will be unable to assist with patient's IV needs. DCP- Discharge Planning Updated by [email or web address]: Greta Parisi on 07/05/18 9:[address] I sent clinical to both [facility] and [place] for a rose check for Vancomycin/Zosyn and TPN and all supplies. I called Lissette with [facility] and informed of possible discharge for Sunday or Sunday. CM will continue to follow and assist with discharge planning/needs. DCP- Discharge Planning Updated by [email or web address]: Raven Hernandez on 06/30/18 9:[address] Patient Name: ENOC GARVEY Admission Status: Urgent Accout number: [id number] Admission Date: 06-27-2018 : 1965 Admission Diagnosis:FISTULA OF INTESTINE Attending: EILEEN BURNETT Current LOS: 3 Anticipated DC Date: 07-02-2018 Planned Disposition: Home Primary Insurance: [facility] MEDICARE SOLUTIONS Discharge Planning Comments: CM MET WITH PATIENT REGARDING D/C NEEDS AND PLANS. PATIENT STATED SHE HAS A CAREGIVER (DAVID LEMUS) LIVING WITH HER AND SHE OR FAMILY WILL DRIVE HER HOME AT DISCHARGE. THERE IS ONE STEP TO ENTER HOME AND NO STAIRS ONCE INSIDE. PATIENT STATED SHE HAS HELP WITH HER MEDICATION AND HAS A WALKER, OXYGEN, AND GLUCOMETER AT HOME. PATIENTS PCP IS DR. RUBIO AND PHARMACY IS [facility]. PATIENT IS CURRENT WITH [facility]. CM WILL CONTINUE TO FOLLOW PATIENT WITH D/C NEEDS AND PLANS. PCP DR. RU[facility] DAVID LEMUS (CAREGIVER) [phone] MANDEEP (DAUGHTER) [phone] Turn Supervisor: Raven Hernandez DCPIA - Discharge Planning Initial Assessment Updated by [email or web address]: Raven Hernandez on 06/30/18 10:12 am * Is the patient Alert and Oriented? Yes * How many steps to enter\exit or inside your home? * PCP DR. RUBIO * [facility] * Preadmission Environment Home with Family * ADLs Partial Dependent * Partial ADLs (Assistance needed) Medication Management * Equipment Glucometer Oxygen Walker * List name and contact numbers for known caregivers / representatives who currently or will assist patient after discharge: DAVID LEMUS (CAREGIVER) [phone] MANDEEP NEWMAN (DAUGHTER) [phone] * Verbal permission to speak to the caregivers and representatives has been obtained from the patient. Yes * Community resources currently utilized Home Health * Please name any agencies selected above. [email or web address] * Additional services required to return to the preadmission environment? Yes * Can the patient safely return to the preadmission environment? Yes * Has this patient been hospitalized within the prior 30 days at any hospital? Yes Last DP export: 07/05/18 9:17 am Patient Name: ENOC GARVEY Page 56248 at 1114 All edits/amendments must be made on the electronic document DICTATION DATE: 07/05/18 1113 CORROSION CONTROL FITTER: ROBERTO 07/05/18 1113 RPT#: [id number] DC DATE: STATUS: ADM IN [facility] [address] [place] [address] END OF REPORT
[2018-07-05 11:42] VITALS: BP 98/45
--- NOTE | 2018-07-05 15:59 | MORECARE ---
CASE MANAGEMENT DISCHARGE SUMMARY PATIENT: ENOC GARVEY UNIT: [id number] ADM DATE: 06/27/18 AGE: 53 : 61 SEX: F ROOM/BED: D.2233 AUTHOR: TANGELA,DOC PHYSICIAN: REFERRING PHYSICIAN: EILEEN BURNETT MD DATE OF SERVICE: 07/05/18 Discharge Plan Patient Name: ENOC GARVEY Facility: [facility]:[place] : 1965 Planned Disposition: Home Anticipated Discharge Date: 07/02/18 Discharge Date: Expected LOS: 5 Initial Reviewer: [email or web address] Initial Review Date: 06/30/2018 Generated: 07/05/18 4:59 pm Comments DCP- Discharge Planning Updated by [email or web address]: Greta Pairsi on 07/05/18 2:[address] Received a call from [place] with [facility]. [place] states she has already called the patient and there is no money due up front. [place] states she might receive a bill, but it would be very little out of pocket and patient is ok for payment plan if needed from [facility]. CM will get the exact orders on Sunday and fax to [facility]. CM will continue to follow and assist with discharge planning/needs. DCP- Discharge Planning Updated by [id number]: Greta Parisi on 07/05/18 10:[address] Received a call from Sidra with [facility] and they are not in Network with [facility] and will be unable to assist with patient's IV needs. DCP- Discharge Planning Updated by [id number]: Greta Parisi on 07/05/18 9:[address] I sent clinical to both [facility] and [facility] for a rose check for Vancomycin/Zosyn and TPN and all supplies. I called Lissette with [facility] and informed of possible discharge for Sunday or Sunday. CM will continue to follow and assist with discharge planning/needs. DCP- Discharge Planning Updated by [email or web address]: Raven Hernandez on 06/30/18 9:[address] Patient Name: ENOC GARVEY Admission Status: Urgent Accout number: [id number] Admission Date: 06-27-2018 : 1965 Admission Diagnosis:FISTULA OF INTESTINE Attending: EILEEN BURNETT Current LOS: 3 Anticipated DC Date: 07-02-2018 Planned Disposition: Home Primary Insurance: [facility] MEDICARE SOLUTIONS Discharge Planning Comments: CM MET WITH PATIENT REGARDING D/C NEEDS AND PLANS. PATIENT STATED SHE HAS A CAREGIVER (DAVID LEMUS) LIVING WITH HER AND SHE OR FAMILY WILL DRIVE HER HOME AT DISCHARGE. THERE IS ONE STEP TO ENTER HOME AND NO STAIRS ONCE INSIDE. PATIENT STATED SHE HAS HELP WITH HER MEDICATION AND HAS A WALKER, OXYGEN, AND GLUCOMETER AT HOME. PATIENTS PCP IS DR. RUBIO AND PHARMACY IS [facility]. PATIENT IS CURRENT WITH [facility]. CM WILL CONTINUE TO FOLLOW PATIENT WITH D/C NEEDS AND PLANS. PCP DR. RUBIO [facility] DAVID LEMUS (CAREGIVER) [phone] MANDEEP (DAUGHTER) [phone] Chemical Economist: Raven Hernandez DCPIA - Discharge Planning Initial Assessment Updated by [email or web address]: Raven Hernandez on 06/30/18 10:12 am * Is the patient Alert and Oriented? Yes * How many steps to enter\exit or inside your home? * PCP DR. RUBIO * [facility] * Preadmission Environment Home with Family * ADLs Partial Dependent * Partial ADLs (Assistance needed) Medication Management * Equipment Glucometer Oxygen Walker * List name and contact numbers for known caregivers / representatives who currently or will assist patient after discharge: DAVID LEMUS (CAREGIVER) [phone] MANDEEP NEWMAN (DAUGHTER) [phone] * Verbal permission to speak to the caregivers and representatives has been obtained from the patient. Yes * Community resources currently utilized Home Health * Please name any agencies selected above. [facility] * Additional services required to return to the preadmission environment? Yes * Can the patient safely return to the preadmission environment? Yes * Has this patient been hospitalized within the prior 30 days at any hospital? Yes Last DP export: 07/05/18 10:14 am Patient Name: ENOC GARVEY Page 92130 at 7506 All edits/amendments must be made on the electronic document DICTATION DATE: 07/05/18 7586 TRIP FOLLOWER: ROBERTO 07/05/18 1558 RPT#: [id number] DC DATE: STATUS: ADM IN [facility] [address] [place] [address] END OF REPORT
[2018-07-05 16:13] VITALS: BP 131/70
[2018-07-05 20:28] VITALS: BP 110/66
[2018-07-06 00:30] VITALS: BP 97/56
[2018-07-06 04:58] VITALS: BP 104/51
[2018-07-06 08:34] VITALS: BP 95/47
[2018-07-06 10:43] LABS: ANION GAP 13.5 mmol/L (8-16); CALCIUM 8.1 mg/dL (8.5-10.1); CARBON DIOXIDE 24.4 mmol/L (21.0-32.0); MAGNESIUM - SERUM 1.8 mg/dL (1.8-2.4); POTASSIUM - SERUM 3.9 mmol/L (3.5-5.1)
[2018-07-06 10:50] LABS: CREATININE - SERUM 1.2 mg/dL (0.6-1.3); PHOSPHOROUS 3.6 mg/dL (2.5-4.9)
[2018-07-06 15:28] VITALS: BP 118/56
[2018-07-06 21:45] VITALS: BP 127/61
[2018-07-07 04:37] VITALS: BP 94/46
[2018-07-07 08:26] LABS: BASOPHILS 0.2 % (0-2); EOSINOPHILS 6.1 % (0-7); IMMATURE GRANULOCYTES 0.5 % (0-5); LYMPHOCYTES 27.9 % (15-50); MCH 27.3 pg (26.0-34.0); MCHC 30.8 g/dL (31.0-37.0); MCV 88.7 fL (80.0-100.0); MEAN PLATELET VOLUME 8.5 fL (7.4-10.4); MONOCYTES 11.1 % (2-11); NEUTROPHILS 54.2 % (40-80); PLATELET COUNT 284 10x3/uL (130-400); RBC 2.93 10x6/uL (4.00-5.40); RDW 14.7 % (11.5-14.5); WBC 6.6 10x3/uL (4.8-10.8)
[2018-07-07 09:00] LABS: ANION GAP 12.9 mmol/L (8-16); CALCIUM 7.7 mg/dL (8.5-10.1); CARBON DIOXIDE 24.8 mmol/L (21.0-32.0); CREATININE - SERUM 1.1 mg/dL (0.6-1.3); POTASSIUM - SERUM 3.7 mmol/L (3.5-5.1)
[2018-07-07 09:08] VITALS: BP 91/51
[2018-07-07 16:00] VITALS: BP 105/58
[2018-07-07 20:00] VITALS: BP 106/52
[2018-07-08] VITALS: BP 100/55
[2018-07-08 04:00] VITALS: BP 105/62
[2018-07-08 08:24] VITALS: BP 125/65
[2018-07-08 09:27] LABS: ANION GAP 11.8 mmol/L (8-16); CALCIUM 7.9 mg/dL (8.5-10.1); CARBON DIOXIDE 25.8 mmol/L (21.0-32.0); CREATININE - SERUM 1.1 mg/dL (0.6-1.3); MAGNESIUM - SERUM 1.7 mg/dL (1.8-2.4); PHOSPHOROUS 2.9 mg/dL (2.5-4.9); POTASSIUM - SERUM 3.6 mmol/L (3.5-5.1)
--- NOTE | 2018-07-08 10:31 | MORECARE ---
CASE MANAGEMENT DISCHARGE SUMMARY PATIENT: ENOC GARVEY UNIT: [id number] ADM DATE: 06/27/18 AGE: 53 : 61 SEX: F ROOM/BED: D.2233 AUTHOR: TANGELA,DOC PHYSICIAN: REFERRING PHYSICIAN: EILEEN BURNETT MD DATE OF SERVICE: 07/08/18 Discharge Plan Patient Name: ENOC GARVEY Facility: [facility]:[place] : 1965 Planned Disposition: Home Anticipated Discharge Date: 07/02/18 Discharge Date: Expected LOS: 5 Initial Reviewer: [email or web address] Initial Review Date: 06/30/2018 Generated: 07/08/18 11:30 am Comments DCP- Discharge Planning Updated by [email or web address]: Greta Parisi on 07/05/18 2:[address] Received a call from [place] with [facility]. [place] states she has already called the patient and there is no money due up front. [place] states she might receive a bill, but it would be very little out of pocket and patient is ok for payment plan if needed from [facility]. CM will get the exact orders on Sunday and fax to [facility]. CM will continue to follow and assist with discharge planning/needs. DCP- Discharge Planning Updated by [email or web address]: Greta Parisi on 07/05/18 10:[address] Received a call from Sidra with [facility] and they are not in Network with [facility] and will be unable to assist with patient's IV needs. DCP- Discharge Planning Updated by [email or web address]: Greta Parisi on 07/05/18 9:[address] I sent clinical to both [facility] and [facility] for a rose check for Vancomycin/Zosyn and TPN and all supplies. I called Lissette with [facility] and informed of possible discharge for Sunday or Sunday. CM will continue to follow and assist with discharge planning/needs. DCP- Discharge Planning Updated by [id number]: Raven Hernandez on 06/30/18 9:[address] Patient Name: ENOC GARVEY Admission Status: Urgent Accout number: [id number] Admission Date: 06-27-2018 : 1965 Admission Diagnosis:FISTULA OF INTESTINE Attending: EILEEN BURNETT Current LOS: 3 Anticipated DC Date: 07-02-2018 Planned Disposition: Home Primary Insurance: [facility] MEDICARE SOLUTIONS Discharge Planning Comments: CM MET WITH PATIENT REGARDING D/C NEEDS AND PLANS. PATIENT STATED SHE HAS A CAREGIVER (DAVID LEMUS) LIVING WITH HER AND SHE OR FAMILY WILL DRIVE HER HOME AT DISCHARGE. THERE IS ONE STEP TO ENTER HOME AND NO STAIRS ONCE INSIDE. PATIENT STATED SHE HAS HELP WITH HER MEDICATION AND HAS A WALKER, OXYGEN, AND GLUCOMETER AT HOME. PATIENTS PCP IS DR. RUBIO AND PHARMACY IS [facility]. PATIENT IS CURRENT WITH [facility]. CM WILL CONTINUE TO FOLLOW PATIENT WITH D/C NEEDS AND PLANS. PCP DR. RUBIO [facility] DAVID LEMUS (CAREGIVER) [phone] MANDEEP (DAUGHTER) [phone] Civil Manager: Raven Hernandez DCPIA - Discharge Planning Initial Assessment Updated by [id number]: Raven Hernandez on 06/30/18 10:12 am * Is the patient Alert and Oriented? Yes * How many steps to enter\exit or inside your home? * PCP DR. RUBIO * [facility] * Preadmission Environment Home with Family * ADLs Partial Dependent * Partial ADLs (Assistance needed) Medication Management * Equipment Glucometer Oxygen Walker * List name and contact numbers for known caregivers / representatives who currently or will assist patient after discharge: DAVID LEMUS (CAREGIVER) [phone] MANDEEP NEWMAN (DAUGHTER) [phone] * Verbal permission to speak to the caregivers and representatives has been obtained from the patient. Yes * Community resources currently utilized Home Health * Please name any agencies selected above. [facility] * Additional services required to return to the preadmission environment? Yes * Can the patient safely return to the preadmission environment? Yes * Has this patient been hospitalized within the prior 30 days at any hospital? Yes External Providers External Provider: [facility] Next Contact Date: Service Request Date: Service Type: Resolution: Reviewer: Comments: Last DP export: 07/05/18 2:59 pm Patient Name: ENOC GARVEY Page 09539 at 1031 All edits/amendments must be made on the electronic document DICTATION DATE: 07/08/18 103 FINISHING ROOM OPERATOR: ROBERTO 07/08/18 1030 RPT#: [id number] DC DATE: STATUS: ADM IN [facility] [address] [place] [address] END OF REPORT
--- NOTE | 2018-07-08 11:09 | MORECARE ---
CASE MANAGEMENT DISCHARGE SUMMARY PATIENT: ENOC GARVEY UNIT: [id number] ADM DATE: 06/27/18 AGE: 53 : 61 SEX: F ROOM/BED: D.2233 AUTHOR: TANGELA,DOC PHYSICIAN: REFERRING PHYSICIAN: EILEEN BURNETT MD DATE OF SERVICE: 07/08/18 Discharge Plan Patient Name: ENOC GARVEY Facility: [facility]:[place] : 1965 Planned Disposition: Home Anticipated Discharge Date: 07/02/18 Discharge Date: Expected LOS: 5 Initial Reviewer: [email or web address] Initial Review Date: 06/30/2018 Generated: 07/08/18 12:08 pm Comments DCP- Discharge Planning Updated by [email or web address]: Greta Parisi on 07/08/18 10:[address] Received orders for antibiotic and TPN. I called Omar with [facility] and informed Dr. Burnett is planning on discharging home today. He states it will be this afternoon until TPN is made and someone can come out for instruction. I called [facility] and spoke with Lissette. They will see her tomorrow. She states both people she has to stay with her will be teachable for wound care and IV. She states her friend David ([phone]) and Live ([phone]) will be staying with her and both are teachable for wound care and IV. I called [facility] and gave her these numbers along with wet to dry dressing changes daily. All orders faxed to [facility] and [facility]. Expect discharge home today with home health after [facility] has came out and instructed and supplies delivered. DCP- Discharge Planning Updated by [email or web address]: Greta Parisi on 07/05/18 2:[address] Received a call from [place] with [facility]. Melissa states she has already called the patient and there is no money due up front. [place] states she might receive a bill, but it would be very little out of pocket and patient is ok for payment plan if needed from [facility]. CM will get the exact orders on Sunday and fax to [facility]. CM will continue to follow and assist with discharge planning/needs. DCP- Discharge Planning Updated by [id number]: Greta Parisi on 07/05/18 10:[address] Received a call from Sidra with [facility] and they are not in Network with [facility] and will be unable to assist with patient's IV needs. DCP- Discharge Planning Updated by [id number]: Greta Parisi on 07/05/18 9:[address] I sent clinical to both [facility] and [place] for a rose check for Vancomycin/Zosyn and TPN and all supplies. I called Lsisette with [facility] and informed of possible discharge for Sunday or Sunday. CM will continue to follow and assist with discharge planning/needs. DCP- Discharge Planning Updated by [id number]: Raven Hernandez on 06/30/18 9:[address] Patient Name: ENOC GARVEY Admission Status: Urgent Accout number: [id number] Admission Date: 06-27-2018 : 1965 Admission Diagnosis:FISTULA OF INTESTINE Attending: EILEEN BURNETT Current LOS: 3 Anticipated DC Date: 07-02-2018 Planned Disposition: Home Primary Insurance: [facility] MEDICARE SOLUTIONS Discharge Planning Comments: CM MET WITH PATIENT REGARDING D/C NEEDS AND PLANS. PATIENT STATED SHE HAS A CAREGIVER (DAVID LEMUS) LIVING WITH HER AND SHE OR FAMILY WILL DRIVE HER HOME AT DISCHARGE. THERE IS ONE STEP TO ENTER HOME AND NO STAIRS ONCE INSIDE. PATIENT STATED SHE HAS HELP WITH HER MEDICATION AND HAS A WALKER, OXYGEN, AND GLUCOMETER AT HOME. PATIENTS PCP IS DR. RUBIO AND PHARMACY IS [facility]. PATIENT IS CURRENT WITH [facility]. CM WILL CONTINUE TO FOLLOW PATIENT WITH D/C NEEDS AND PLANS. PCP DR. RUBIO [facility] DAVID LEMUS (CAREGIVER) [phone] MANDEEP (DAUGHTER) [phone] Cloth Mercerizer Back Tender: Raven Hernandez DCPIA - Discharge Planning Initial Assessment Updated by [email or web address]: Raven Hernandez on 06/30/18 10:12 am * Is the patient Alert and Oriented? Yes * How many steps to enter\exit or inside your home? * PCP DR. RUBIO * [facility] * Preadmission Environment Home with Family * ADLs Partial Dependent * Partial ADLs (Assistance needed) Medication Management * Equipment Glucometer Oxygen Walker * List name and contact numbers for known caregivers / representatives who currently or will assist patient after discharge: DAVID LEMUS (CAREGIVER) [phone] MANDEEP NEWMAN (DAUGHTER) [phone] * Verbal permission to speak to the caregivers and representatives has been obtained from the patient. Yes * Community resources currently utilized Home Health * Please name any agencies selected above. [facility] * Additional services required to return to the preadmission environment? Yes * Can the patient safely return to the preadmission environment? Yes * Has this patient been hospitalized within the prior 30 days at any hospital? Yes Last DP export: 07/08/18 9:30 am Patient Name: ENOC GARVEY Page 34697 at 1109 All edits/amendments must be made on the electronic document DICTATION DATE: 07/08/181107 COLLAR SETTER OVERLOCK: ROBERTO 07/08/181107 RPT#: [id number] DC DATE: STATUS: ADM IN [facility] [address] [place] [address] END OF REPORT
[2018-07-08 12:00] VITALS: BP 110/57
[2018-07-08] MEDS ORDERED: INVANZ 1 GM/NS 11 G1 IV (12:20)
[2018-07-08] MEDS ORDERED: LOVENOX INJ100 MG/ML SC (12:20)
--- NOTE | 2018-07-08 16:03 | MORECARE ---
CASE MANAGEMENT DISCHARGE SUMMARY PATIENT: ENOC GARVEY UNIT: [id number] ADM DATE: 06/27/18 AGE: 53 : 61 SEX: F ROOM/BED: D.2233 AUTHOR: TANGELA,DOC PHYSICIAN: REFERRING PHYSICIAN: EILEEN BURNETT MD DATE OF SERVICE: 07/08/18 Discharge Plan Patient Name: ENOC GARVEY Facility: [facility]:[place] : 1965 Planned Disposition: Home Anticipated Discharge Date: 07/02/18 Discharge Date: Expected LOS: 5 Initial Reviewer: [email or web address] Initial Review Date: 06/30/2018 Generated: 07/08/18 5:03 pm Comments DCP- Discharge Planning Updated by [email or web address]: Greta Parisi on 07/08/18 2:[address] Omar with [facility] is here to instruct on TPN and pump. Friend is at bedside. DCP- Discharge Planning Updated by [email or web address]: Greta Parisi on 07/08/18 10:[address] Received orders for antibiotic and TPN. I called Omar with [facility] and informed Dr. Burnett is planning on discharging home today. He states it will be this afternoon until TPN is made and someone can come out for instruction. I called [facility] and spoke with Lissette. They will see her tomorrow. She states both people she has to stay with her will be teachable for wound care and IV. She states her friend David ([phone]) and Live ([phone]) will be staying with her and both are teachable for wound care and IV. I called Lissette and gave her these numbers along with wet to dry dressing changes daily. All orders faxed to [facility] and [facility]. Expect discharge home today with home health after [facility] has came out and instructed and supplies delivered. DCP- Discharge Planning Updated by [id number]: Greta Parisi on 07/05/18 2:[address] Received a call from [place] with [facility]. [place] states she has already called the patient and there is no money due up front. [place] states she might receive a bill, but it would be very little out of pocket and patient is ok for payment plan if needed from [facility]. CM will get the exact orders on Sunday and fax to [facility]. CM will continue to follow and assist with discharge planning/needs. DCP- Discharge Planning Updated by [id number]: Greta Parisi on 07/05/18 10:[address] Received a call from Sidra with [facility] and they are not in Network with [facility] and will be unable to assist with patient's IV needs. DCP- Discharge Planning Updated by [id number]: Greta Parisi on 07/05/18 9:[address] I sent clinical to both [facility] and [facility] for a rose check for Vancomycin/Zosyn and TPN and all supplies. I called Lissette with [facility] and informed of possible discharge for Sunday or Sunday. CM will continue to follow and assist with discharge planning/needs. DCP- Discharge Planning Updated by [id number]: Raven Hernandez on 06/30/18 9:[address] Patient Name: ENOC GARVEY Admission Status: Urgent Accout number: [id number] Admission Date: 06-27-2018 : 1965 Admission Diagnosis:FISTULA OF INTESTINE Attending: EILEEN BURNETT Current LOS: 3 Anticipated DC Date: 07-02-2018 Planned Disposition: Home Primary Insurance: [facility] MEDICARE SOLUTIONS Discharge Planning Comments: CM MET WITH PATIENT REGARDING D/C NEEDS AND PLANS. PATIENT STATED SHE HAS A CAREGIVER (DAVID LEMUS) LIVING WITH HER AND SHE OR FAMILY WILL DRIVE HER HOME AT DISCHARGE. THERE IS ONE STEP TO ENTER HOME AND NO STAIRS ONCE INSIDE. PATIENT STATED SHE HAS HELP WITH HER MEDICATION AND HAS A WALKER, OXYGEN, AND GLUCOMETER AT HOME. PATIENTS PCP IS DR. RUBIO AND PHARMACY IS [facility]. PATIENT IS CURRENT WITH [facility]. CM WILL CONTINUE TO FOLLOW PATIENT WITH D/C NEEDS AND PLANS. PCP DR. RUBIO [facility] DAVID LEMUS (CAREGIVER) [phone] MANDEEP (DAUGHTER) [phone] Enterprise Architect Manager: Raven Hernandez DCPIA - Discharge Planning Initial Assessment Updated by [email or web address]: Raven Hernandez on 06/30/18 10:12 am * Is the patient Alert and Oriented? Yes * How many steps to enter\exit or inside your home? * PCP DR. RUBIO * [facility] * Preadmission Environment Home with Family * ADLs Partial Dependent * Partial ADLs (Assistance needed) Medication Management * Equipment Glucometer Oxygen Walker * List name and contact numbers for known caregivers / representatives who currently or will assist patient after discharge: DAVID LEMUS (CAREGIVER) [phone] MANDEEP NEWMAN (DAUGHTER) [phone] * Verbal permission to speak to the caregivers and representatives has been obtained from the patient. Yes * Community resources currently utilized Home Health * Please name any agencies selected above. [facility] * Additional services required to return to the preadmission environment? Yes * Can the patient safely return to the preadmission environment? Yes * Has this patient been hospitalized within the prior 30 days at any hospital? Yes Coverage Notice Reviewer: [id number] Patti Parisi Notice Issued Date-Time: 07/08/2018 14:15 Notice Type: IM Discharge Notice Notice Delivered To: Patient Relationship to Patient: Self In Tube Conversion Technician Name: Delivery Method: HAND - Hand Delivered Noreen Days: Prior Verbal Notification: Recipient Understood Notice: Yes Recipient Signature: Yes Med Rec Note Co-signed by Attending: Coverage Notice Comment: IMM explained, signed, copy given, original placed in MR Last DP export: 07/08/18 10:08 am Patient Name: ENOC GARVEY Page 47718 at 1603 All edits/amendments must be made on the electronic document DICTATION DATE: 07/08/181601 LEGISLATIVE CORRESPONDENT: ROBERTO 07/08/18 160 RPT#: [id number] DC DATE: STATUS: ADM IN [facility] [address] [place] [address] END OF REPORT
[2018-07-08 16:13] VITALS: BP 138/66
--- NOTE | 2018-07-10 16:35 | MORECARE ---
CASE MANAGEMENT DISCHARGE SUMMARY PATIENT: ENOC GARVEY UNIT: [id number] ADM DATE: 06/27/18 AGE: 53 : 61 SEX: F ROOM/BED: D.2233 AUTHOR: TANGELA,DOC PHYSICIAN: REFERRING PHYSICIAN: EILEEN BURNETT MD DATE OF SERVICE: 07/10/18 Discharge Plan Patient Name: ENOC GARVEY Facility: [facility]:[place] : 1965 Planned Disposition: Home Anticipated Discharge Date: 07/02/18 Discharge Date: 07/08/2018 Expected LOS: 5 Initial Reviewer: [email or web address] Initial Review Date: 06/30/2018 Generated: 07/10/18 5:34 pm Comments DCP- Discharge Planning Updated by [email or web address]: Greta Parisi on 07/08/18 2:[address] Omar with [facility] is here to instruct on TPN and pump. Friend is at bedside. DCP- Discharge Planning Updated by [id number]: Greta Parisi on 07/08/18 10:[address] Received orders for antibiotic and TPN. I called Omar with [facility] and informed Dr. Burnett is planning on discharging home today. He states it will be this afternoon until TPN is made and someone can come out for instruction. I called [facility] and spoke with Lissette. They will see her tomorrow. She states both people she has to stay with her will be teachable for wound care and IV. She states her friend David ([phone]) and Live ([phone]) will be staying with her and both are teachable for wound care and IV. I called Lissette and gave her these numbers along with wet to dry dressing changes daily. All orders faxed to [facility] and [facility]. Expect discharge home today with home health after [facility] has came out and instructed and supplies delivered. DCP- Discharge Planning Updated by [email or web address]: Greta Parisi on 07/05/18 2:[address] Received a call from Melissa with [facility]. Melissa states she has already called the patient and there is no money due up front. Melissa states she might receive a bill, but it would be very little out of pocket and patient is ok for payment plan if needed from [facility]. CM will get the exact orders on Sunday and fax to [facility]. CM will continue to follow and assist with discharge planning/needs. DCP- Discharge Planning Updated by [email or web address]: Greta Parisi on 07/05/18 10:[address] Received a call from Sidra with [facility] and they are not in Network with [facility] and will be unable to assist with patient's IV needs. DCP- Discharge Planning Updated by [email or web address]: Greta Parisi on 07/05/18 9:[address] I sent clinical to both [facility] and [facility] for a rose check for Vancomycin/Zosyn and TPN and all supplies. I called Lissette with [facility] and informed of possible discharge for Sunday or Sunday. CM will continue to follow and assist with discharge planning/needs. DCP- Discharge Planning Updated by [id number]: Raven Hernandez on 06/30/18 9:[address] Patient Name: ENOC GARVEY Admission Status: Urgent Accout number: [id number] Admission Date: 06-27-2018 : 1965 Admission Diagnosis:FISTULA OF INTESTINE Attending: EILEEN BURNETT Current LOS: 3 Anticipated DC Date: 07-02-2018 Planned Disposition: Home Primary Insurance: [facility] MEDICARE SOLUTIONS Discharge Planning Comments: CM MET WITH PATIENT REGARDING D/C NEEDS AND PLANS. PATIENT STATED SHE HAS A CAREGIVER (DAVID LEMUS) LIVING WITH HER AND SHE OR FAMILY WILL DRIVE HER HOME AT DISCHARGE. THERE IS ONE STEP TO ENTER HOME AND NO STAIRS ONCE INSIDE. PATIENT STATED SHE HAS HELP WITH HER MEDICATION AND HAS A WALKER, OXYGEN, AND GLUCOMETER AT HOME. PATIENTS PCP IS DR. RUBIO AND PHARMACY IS [facility]. PATIENT IS CURRENT WITH [facility]. CM WILL CONTINUE TO FOLLOW PATIENT WITH D/C NEEDS AND PLANS. PCP DR. RUBIO [facility] DAVID LEMUS (CAREGIVER) [phone] MANDEEP (DAUGHTER) [phone] Catering Cook: Raven Hernandez DCPIA - Discharge Planning Initial Assessment Updated by [email or web address]: Raven Hernandez on 06/30/18 10:12 am * Is the patient Alert and Oriented? Yes * How many steps to enter\exit or inside your home? * PCP DR. RUBIO * [facility] * Preadmission Environment Home with Family * ADLs Partial Dependent * Partial ADLs (Assistance needed) Medication Management * Equipment Glucometer Oxygen Walker * List name and contact numbers for known caregivers / representatives who currently or will assist patient after discharge: DAVID LEMUS (CAREGIVER) [phone] MANDEEP NEWMAN (DAUGHTER) [phone] * Verbal permission to speak to the caregivers and representatives has been obtained from the patient. Yes * Community resources currently utilized Home Health * Please name any agencies selected above. [facility] * Additional services required to return to the preadmission environment? Yes * Can the patient safely return to the preadmission environment? Yes * Has this patient been hospitalized within the prior 30 days at any hospital? Yes Coverage Notice Reviewer: [email or web address] Patti Parisi Notice Issued Date-Time: 07/08/2018 14:15 Notice Type: IM Discharge Notice Notice Delivered To: Patient Relationship to Patient: Self Workers Compensation Claims Examiner Name: Delivery Method: HAND - Hand Delivered Noreen Days: Prior Verbal Notification: Recipient Understood Notice: Yes Recipient Signature: Yes Med Rec Note Co-signed by Attending: Coverage Notice Comment: IMM explained, signed, copy given, original placed in MR Last DP export: 07/08/18 3:03 pm Patient Name: ENOC GARVEY Page [id number] at 1635 All edits/amendments must be made on the electronic document DICTATION DATE: 07/10/18 1634 REEL TENDER: ROBERTO 07/10/18 1634 RPT#: [id number] DC DATE:07/08/18 STATUS: DIS IN [facility] [address] [place] [address] END OF REPORT
== END 2018-07-08 17:38 | disposition home health service (06) | DRG 393 ==
LOC: D.MS 14:14
PROVIDERS: ADMIT Surgery
PROC: 05HY33Z Insertion of Infusion Device into Upper Vein, Percutaneous Approach (ICD-10-PCS; principal; 2018-06-27)
DX: K63.2 Fistula of intestine (principal); I81 Portal vein thrombosis; D64.9 Anemia, unspecified

== ENCOUNTER → 2018-07-19 07:54 | Outpatient (CLI) | payer MEDICARE, MEDICAID ==
[2018-06-28 12:15] VITALS: BMI 26.7
[~2018-07-19 07:54] MED LIST changes: +INVANZ 1 GM/NS 11 G1 IV; +LOVENOX INJ100 MG/ML SC
== END | disposition home or self-care (01) ==
LOC: D.CT 07:54
DX: K63.2 Fistula of intestine (principal)

== ENCOUNTER → 2018-08-02 08:52 | Outpatient (CLI) | payer MEDICARE, MEDICAID ==
[2018-06-28 12:15] VITALS: BMI 26.7
== END | disposition home or self-care (01) ==
LOC: D.CT 08:52
DX: K63.2 Fistula of intestine (principal)

== ENCOUNTER 2018-11-04 06:00 | Day surgery (SDC) | payer MEDICARE, MEDICAID ==
[2018-11-01 11:22] LABS: ANION GAP 11.7 mmol/L (8-16); CALCIUM 8.7 mg/dL (8.5-10.1); CARBON DIOXIDE 27.4 mmol/L (21.0-32.0); POTASSIUM - SERUM 4.1 mmol/L (3.5-5.1)
[2018-11-01 11:30] LABS: APTT 21.4 SECONDS (22.8-39.4); INR 1.02 (0.85-1.17); PROTIME 12.9 SECONDS (11.6-15.0)
[2018-11-01 11:32] LABS: HEMATOCRIT 33.8 % (36.0-48.0); HEMOGLOBIN 10.9 g/dL (12-16); MCH 27.5 pg (26.0-34.0); MCHC 32.2 g/dL (31.0-37.0); MCV 85.4 fL (80.0-100.0); MEAN PLATELET VOLUME 9.1 fL (7.4-10.4); RBC 3.96 10x6/uL (4.00-5.40)
[~2018-11-04] VITALS: Ht 172.7 cm; Wt 88.0 kg
[~2018-11-04 06:00] MED LIST changes: +ATIVAN1 MG PO; +CYCLOBENZAPRINE10 MG PO; +DULERA 200 MCG8.8 GM INH; +HUMALOG 30100 UNITS/ SC
[2018-11-04 06:18] VITALS: BP 119/66; Ht 172.7 cm; Wt 88.0 kg
[2018-11-04] MEDS ORDERED: HYDROCODON-ACE1 EAC7 PO (08:51)
--- NOTE | 2018-11-04 09:03 | NUR ---
OPA IN AIRWAY ON ADMIT
--- NOTE | 2018-11-04 10:36 | NUR ---
IV REMOVED INFILTRATED AFTER FLUSHING. SITE HARD AROUND AREA. NO BLOOD IN CATHETER WHEN REMOVED. PRESSURE HELD AND DRESSING APPLIED. TOLERATING COFFEE AND APPLE JUICE. PAIN MILD. NO REQUEST FOR PAIN MED.
--- NOTE | 2018-11-04 14:30 | OP ---
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 PROCEDURE PERFORMED: Right lower quadrant scar revision. ANESTHESIA: General. COMPLICATIONS: None. SPECIMENS: Right lower quadrant scar. Case was clean. OPERATIVE COURSE: After consent was obtained, the patient was taken to the operating room and placed in the supine position on the operating table. Next, general anesthesia was given via endotracheal intubation after a timeout was taken to confirm the correct patient and procedure. A 20 cc of local anesthetic were injected around the previous right lower quadrant scar. This scar was excised using elliptical incision with a 10-blade scalpel. The subcutaneous tissues dissected using electrocautery. The sinus tract was followed to the level of the anterior abdominal wall, it was excised using electrocautery. A 3-0 Vicryl suture was used to close the sinus tract at the level of the anterior abdominal wall. The specimen was passed off the field and sent for permanent pathology. The wound was irrigated and suctioned. The deep subQ was closed with 3-0 Vicryl suture, superficial subQ was closed with 3-0 Vicryl suture. The skin was closed with a 4-0 Stratafix, Mastisol, and Steri-Strips. At the end of the case, all needle and instrument counts were correct. No complications occurred. The patient was extubated and transferred to the PACU in stable condition. TRANSINT:[id number] Voice Confirmation ID: [id number] DOCUMENT ID: [id number] EILEEN BURNETT MD at 1430 CC: [id number] DICTATION DATE: 11/04/18 09 BLIND HOOKER: 11/04/18 1326 [facility] 11/04/18 [address] [place] [address]
== END 2018-11-04 11:20 | disposition home or self-care (01) ==
LOC: D.OPS 06:00 → D.PAN 08:00 → D.OPS 08:00
PROVIDERS: Anesthesiology; ATTEND Surgery
DX: T81.83XA Persistent postprocedural fistula, initial encounter (principal); Z01.812 Encounter for preprocedural laboratory examination

== ENCOUNTER 2018-11-08 14:38 | Inpatient (IN) | payer MEDICARE, MEDICAID ==
[~2018-11-08] VITALS: Ht 172.7 cm; Wt 88.9 kg
[2018-11-08 15:35] VITALS: BP 116/65; BMI 29.8
[2018-11-08 17:25] LABS: BASOPHILS 0.1 % (0-2); EOSINOPHILS 2.5 % (0-7); HEMATOCRIT 29.8 % (36.0-48.0); HEMOGLOBIN 9.7 g/dL (12-16); IMMATURE GRANULOCYTES 0.3 % (0-5); LYMPHOCYTES 16.5 % (15-50); MCHC 32.6 g/dL (31.0-37.0); MCV 85.9 fL (80.0-100.0); MEAN PLATELET VOLUME 8.9 fL (7.4-10.4); MONOCYTES 11.6 % (2-11); PLATELET COUNT 215 10x3/uL (130-400); RBC 3.47 10x6/uL (4.00-5.40); RDW 15.9 % (11.5-14.5)
[2018-11-08 17:39] LABS: ALBUMIN 2.7 g/dL (3.4-5.0); BILIRUBIN - TOTAL 0.36 mg/dL (0.2-1.3); CALCIUM 8.1 mg/dL (8.5-10.1); CARBON DIOXIDE 23.8 mmol/L (21.0-32.0); MAGNESIUM - SERUM 1.8 mg/dL (1.8-2.4); PHOSPHOROUS 3.7 mg/dL (2.5-4.9); POTASSIUM - SERUM 3.8 mmol/L (3.5-5.1); PROTEIN - SERUM 7.1 g/dL (6.4-8.2)
[2018-11-08 20:00] VITALS: BP 110/55
[2018-11-08 23:52] VITALS: BP 120/54
[2018-11-09] VITALS (12 sets, daily range): BP systolic 91–126; BP diastolic 41–79; Ht 172.7 cm; Wt 88.9 kg
[2018-11-09 05:33] LABS: BASOPHILS 0 % (0-2); EOSINOPHILS 1.3 % (0-7); HEMATOCRIT 30.8 % (36.0-48.0); HEMOGLOBIN 9.7 g/dL (12-16); IMMATURE GRANULOCYTES 0.2 % (0-5); LYMPHOCYTES 12.2 % (15-50); MCH 27.6 pg (26.0-34.0); MCHC 31.5 g/dL (31.0-37.0); MCV 87.7 fL (80.0-100.0); MEAN PLATELET VOLUME 8.8 fL (7.4-10.4); MONOCYTES 6.9 % (2-11); NEUTROPHILS 79.4 % (40-80); PLATELET COUNT 204 10x3/uL (130-400); RBC 3.51 10x6/uL (4.00-5.40); RDW 16.2 % (11.5-14.5); WBC 8.7 10x3/uL (4.8-10.8)
[2018-11-09 05:53] LABS: ANION GAP 13.7 mmol/L (8-16); CALCIUM 7.5 mg/dL (8.5-10.1); CARBON DIOXIDE 24.3 mmol/L (21.0-32.0)
--- NOTE | 2018-11-09 09:23 | OP ---
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 PROCEDURES PERFORMED: Laparotomy, lysis of adhesions, and small bowel resection. ANESTHESIA: General. COMPLICATIONS: None. SPECIMENS: Small bowel resection. Case was grossly contaminated. ESTIMATED BLOOD LOSS: 100 cc. OPERATIVE COURSE: After consent was obtained, the patient was taken to the operating room and placed in the supine position on the operating table. General anesthesia was given via endotracheal intubation. After a timeout was taken to confirm the correct patient and procedure, the abdomen was prepped and draped in typical sterile fashion. The right lower quadrant incision from her previous ileostomy reversal was opened using a #10-blade scalpel approximately 30 cc of purulent fluid were evacuated from the wound. Culture and sensitivities were obtained. The wound was copiously irrigated and suctioned. Dissection carried through subcutaneous tissue. There is active succuss emanating from the fascial layer at the base of the wound. The fascia was opened medially and laterally to the area of fistula communication. Abdominal cavity was entered. The fascia was opened under direct vision using a combination of electrocautery and scalpel dissection. Extensive lysis of adhesions was then performed. The small bowel was mobilized and extracorporealized to the right lower quadrant incision. The area of small bowel fistula was localized, prepped with a Lucille. At this time, the fistula was in the anastomotic suture line of the previous small-bowel enteroenterostomy. Proximal to the fistula and healthy tissue, enterotomies were made. A dhet-ug-xfgc anastomosis created using a linear cutting 75-mm VALENTINA stapler. The common enterotomy was then closed with a second firing of the linear cutting stapler, transecting the previous small-bowel anastomosis and fistula. The staple line was then imbricated using 3-0 Vicryl suture. The abdomen was irrigated with 2 liters of warm normal saline. The small bowel was returned to the abdomen. The abdominal cavity was again irrigated and suctioned. There was no evidence of bowel injury. No evidence of bleeding. At this time, the fascia was closed using #0-looped PDS. Due to the amount of contamination in the subcutaneous tissue, subcutaneous tissue was treated with a wound VAC and a silver sponge was placed in the subcutaneous tissue. The wound length was 12 cm and the width was 6 cm and the depth of 6 cm. The back was placed to the sponge with a good seal. OPERATIVE REPORT [id number] ENOC GARVEY At the end of the case, all needle and instrument counts were correct. No complications occurred. The patient was extubated and transferred to the PACU in stable condition. TRANSINT:[id number] Voice Confirmation ID: [id number] DOCUMENT ID: [id number] EILEEN BURNETT MD at 0923 CC: [id number] DICTATION DATE: 11/08/182235 BLIND HANGER: 11/09/18 0300 ADM IN [id number] [place] [address]
[2018-11-10] VITALS: BP 112/58
[2018-11-10 04:00] VITALS: BP 104/58
[2018-11-10 05:39] LABS: BASOPHILS 0.1 % (0-2); EOSINOPHILS 3.6 % (0-7); HEMATOCRIT 26.8 % (36.0-48.0); HEMOGLOBIN 8.3 g/dL (12-16); IMMATURE GRANULOCYTES 0.2 % (0-5); LYMPHOCYTES 12.4 % (15-50); MCH 27.4 pg (26.0-34.0); MCV 88.4 fL (80.0-100.0); MEAN PLATELET VOLUME 8.5 fL (7.4-10.4); MONOCYTES 10.3 % (2-11); NEUTROPHILS 73.4 % (40-80); PLATELET COUNT 209 10x3/uL (130-400); RBC 3.03 10x6/uL (4.00-5.40); RDW 16.5 % (11.5-14.5); WBC 8.8 10x3/uL (4.8-10.8)
[2018-11-10 05:45] LABS: ANION GAP 12.1 mmol/L (8-16); CALCIUM 7.3 mg/dL (8.5-10.1); CARBON DIOXIDE 23.8 mmol/L (21.0-32.0); CREATININE - SERUM 0.9 mg/dL (0.6-1.3); POTASSIUM - SERUM 3.9 mmol/L (3.5-5.1)
[2018-11-10 08:45] VITALS: BP 109/55
[2018-11-10 12:23] VITALS: BP 118/61
[2018-11-10 17:39] VITALS: BP 127/60
[2018-11-10 20:00] VITALS: BP 108/50
[2018-11-11] VITALS: BP 100/54
[2018-11-11 03:00] VITALS: BP 89/47
[2018-11-11 05:05] LABS: BASOPHILS 0.1 % (0-2); EOSINOPHILS 4.4 % (0-7); HEMOGLOBIN 7.7 g/dL (12-16); IMMATURE GRANULOCYTES 0.5 % (0-5); LYMPHOCYTES 15.3 % (15-50); MCHC 30.8 g/dL (31.0-37.0); MCV 87.7 fL (80.0-100.0); MEAN PLATELET VOLUME 8.6 fL (7.4-10.4); MONOCYTES 9.1 % (2-11); NEUTROPHILS 70.6 % (40-80); PLATELET COUNT 191 10x3/uL (130-400); RBC 2.85 10x6/uL (4.00-5.40); RDW 16.2 % (11.5-14.5); WBC 7.8 10x3/uL (4.8-10.8)
[2018-11-11 05:20] LABS: CALCIUM 7.9 mg/dL (8.5-10.1); CHLORIDE - SERUM 107 mmol/L (98-107); CREATININE - SERUM 0.8 mg/dL (0.6-1.3); GLUCOSE 117 mg/dL (74-106); POTASSIUM - SERUM 3.4 mmol/L (3.5-5.1); SODIUM 140 mmol/L (136-145); eGFR NON AFRICAN AMERICAN 79 mL/min (90-120)
[2018-11-11 05:23] LABS: CALC OSMOLALITY 276 mosm/kg (275-300); UREA NITROGEN 5 mg/dL (7-18)
[2018-11-11 09:10] VITALS: BP 100/52
[2018-11-11 13:33] VITALS: BP 110/60
--- NOTE | 2018-11-11 13:55 | MORECARE ---
CASE MANAGEMENT DISCHARGE SUMMARY PATIENT: ENOC GARVEY UNIT: [id number] ADM DATE: 11/08/18 AGE: 53 : 61 SEX: F ROOM/BED: D.2229 AUTHOR: TANGELA,DOC PHYSICIAN: REFERRING PHYSICIAN: EILEEN BURNETT MD DATE OF SERVICE: 11/11/18 Discharge Plan Patient Name: ENOC GARVEY Facility: [facility]:[place] : 1965 Planned Disposition: Home Hlth Svc w Plan Readm Anticipated Discharge Date: Discharge Date: Expected LOS: Initial Reviewer: [email or web address] Initial Review Date: 11/11/2018 Generated: 11/11/18 2:55 pm Comments DCP- Discharge Planning Updated by [email or web address]: Greta Parisi on 11/11/18 12:[address] Patient Name: ENOC GARVEY Admission Status: Elective Accout number: [id number] Admission Date: 11-08-2018 : 1965 Admission Diagnosis: Attending: EILEEN BURNETT Current LOS: 3 Anticipated DC Date: Planned Disposition: Home Hlth Svc w Plan Readm Primary Insurance: [facility] MEDICARE SOLUTIONS Discharge Planning Comments: CM met with patient to discuss discharge planning, she is alone in the room. She states she still lives with her friend (Ce). States she is independent with all ADL's. States Home health has still been seeing her twice a week. I discussed the availability of inpatient rehab, SNF, continued home health and DME. She states her plan is to return home with home health and feels this is a safe discharge. She will need a wound vac. I ordered wound vac and faxed clinical to [facility]. I called [facility] and informed of wound vac and will need dressing changes three times a week. CM will continue to follow and assist with discharge planning/needs. Structural Steel Shop Supervisor: Greta Parisi DCPIA - Discharge Planning Initial Assessment Updated by [email or web address]: Greta Parisi on 11/11/18 1:48 pm * Is the patient Alert and Oriented? Yes * How many steps to enter\exit or inside your home? 1/0 * PCP Dr. Chauhan * Pharmacy [facility] in [place] * Preadmission Environment Home with Family * ADLs Independent * Equipment Glucometer Nebulizer Other Oxygen Walker * Other Equipment Portable oxygen * List name and contact numbers for known caregivers / representatives who currently or will assist patient after discharge: Ce Diego - live in [facility] [phone] Bailee Sage - R - [phone] * Verbal permission to speak to the caregivers and representatives has been obtained from the patient. Yes * Community resources currently utilized Home Health * Please name any agencies selected above. [facility] is [place] for oxygen and nebulizer supplies * Additional services required to return to the preadmission environment? Yes * Can the patient safely return to the preadmission environment? Yes * Has this patient been hospitalized within the prior 30 days at any hospital? No External Providers External Provider: [facility] Next Contact Date: Service Request Date: Service Type: Resolution: Reviewer: Comments: Coverage Notice Reviewer: [id number] Patti Parisi Notice Issued Date-Time: 11/11/2018 13:44 Notice Type: Patient Choice Letter Notice Delivered To: Patient Relationship to Patient: Apiarist Name: Delivery Method: HAND - Hand Delivered Noreen Days: Prior Verbal Notification: Recipient Understood Notice: Yes Recipient Signature: Yes Med Rec Note Co-signed by Attending: Coverage Notice Comment: PANKAJ for [facility] and [employer] Patient Name: ENOC GARVEY Page 37005 at 1355 All edits/amendments must be made on the electronic document DICTATION DATE: 11/11/18 135 TDP DISPLAYS ANALYST: ROBERTO 11/11/18 1354 RPT#: [id number] DC DATE: STATUS: ADM IN [facility] [address] [place] [address] END OF REPORT
[2018-11-11 16:49] VITALS: BP 122/62
[2018-11-11 18:00] VITALS: BP 123/66
[2018-11-12 01:06] VITALS: BP 124/57
[2018-11-12 05:56] VITALS: BP 118/55
[2018-11-12 07:11] LABS: CALC OSMOLALITY 273 mosm/kg (275-300); CALCIUM 8.7 mg/dL (8.5-10.1); CHLORIDE - SERUM 102 mmol/L (98-107); CREATININE - SERUM 0.7 mg/dL (0.6-1.3); GLUCOSE 139 mg/dL (74-106); POTASSIUM - SERUM 3.5 mmol/L (3.5-5.1); SODIUM 137 mmol/L (136-145); UREA NITROGEN 6 mg/dL (7-18); eGFR NON AFRICAN AMERICAN > 90 mL/min (90-120)
[2018-11-12 07:24] LABS: BASOPHILS 0.1 % (0-2); EOSINOPHILS 4.3 % (0-7); HEMOGLOBIN 8.5 g/dL (12-16); IMMATURE GRANULOCYTES 0.4 % (0-5); LYMPHOCYTES 14.1 % (15-50); MCH 27.3 pg (26.0-34.0); MCHC 31.5 g/dL (31.0-37.0); MCV 86.8 fL (80.0-100.0); MEAN PLATELET VOLUME 8.9 fL (7.4-10.4); MONOCYTES 9.9 % (2-11); NEUTROPHILS 71.2 % (40-80); RBC 3.11 10x6/uL (4.00-5.40); RDW 16.3 % (11.5-14.5); WBC 7.2 10x3/uL (4.8-10.8)
[2018-11-12 07:29] LABS: PLATELET COUNT 261 10x3/uL (130-400)
[2018-11-12 09:13] VITALS: BP 123/51
--- NOTE | 2018-11-12 09:51 | MORECARE ---
CASE MANAGEMENT DISCHARGE SUMMARY PATIENT: ENOC GARVEY UNIT: [id number] ADM DATE: 11/08/18 AGE: 53 : 61 SEX: F ROOM/BED: D.2229 AUTHOR: TANGELA,DOC PHYSICIAN: REFERRING PHYSICIAN: EILEEN BURNETT MD DATE OF SERVICE: 11/12/18 Discharge Plan Patient Name: ENOC GARVEY Facility: [facility]:[place] : 1965 Planned Disposition: Home Hlth Svc w Plan Readm Anticipated Discharge Date: Discharge Date: Expected LOS: Initial Reviewer: [email or web address] Initial Review Date: 11/11/2018 Generated: 11/12/18 10:50 am Comments DCP- Discharge Planning Updated by [email or web address]: Greta Parisi on 11/12/18 8:[address] Wound Vac approved. Patient has signed receipt. I called Sara in [employer] and she will deliver home wound vac. I [facility]ed signed [facility]. CM will continue to follow and assist with discharge planning/needs. DCP- Discharge Planning Updated by [id number]: Greta Isak on 11/11/18 12:[address] Patient Name: ENOC GARVEY Admission Status: Elective Accout number: [id number] Admission Date: 11-08-2018 : 1965 Admission Diagnosis: Attending: EILEEN BURNETT Current LOS: 3 Anticipated DC Date: Planned Disposition: Home Hlth Svc w Plan Readm Primary Insurance: [facility] MEDICARE SOLUTIONS Discharge Planning Comments: CM met with patient to discuss discharge planning, she is alone in the room. She states she still lives with her friend (Ce). States she is independent with all ADL's. States Home health has still been seeing her twice a week. I discussed the availability of inpatient rehab, SNF, continued home health and DME. She states her plan is to return home with home health and feels this is a safe discharge. She will need a wound vac. I ordered wound vac and [facility]ed clinical [facility]. I called [facility] and informed of wound vac and will need dressing changes three times a week. CM will continue to follow and assist with discharge planning/needs. Forestry Professor: Greta Parisi DCPIA - Discharge Planning Initial Assessment Updated by [email or web address]: Greta Parisi on 11/11/18 1:48 pm * Is the patient Alert and Oriented? Yes * How many steps to enter\exit or inside your home? 1/0 * PCP Dr. Chauhan * Pharmacy [facility] in [place] * Preadmission Environment Home with Family * ADLs Independent * Equipment Glucometer Nebulizer Other Oxygen Walker * Other Equipment Portable oxygen * List name and contact numbers for known caregivers / representatives who currently or will assist patient after discharge: Ce Diego - live in [facility] [phone] Bailee Sage - [facility] [phone] * Verbal permission to speak to the caregivers and representatives has been obtained from the patient. Yes * Community resources currently utilized Home Health * Please name any agencies selected above. [facility] is [facility] for oxygen and nebulizer supplies * Additional services required to return to the preadmission environment? Yes * Can the patient safely return to the preadmission environment? Yes * Has this patient been hospitalized within the prior 30 days at any hospital? No Coverage Notice Reviewer: [email or web address] - Greta Parisi Notice Issued Date-Time: 11/11/2018 13:44 Notice Type: Patient Choice Letter Notice Delivered To: Patient Relationship to Patient: Data Management Specialist Name: Delivery Method: HAND - Hand Delivered Noreen Days: Prior Verbal Notification: Recipient Understood Notice: Yes Recipient Signature: Yes Med Rec Note Co-signed by Attending: Coverage Notice Comment: PANKAJ for [facility] and [employer] Last DP export: 11/11/18 12:55 p Patient Name: ENOC GARVEY Page 48460 at 0951 All edits/amendments must be made on the electronic document DICTATION DATE: 11/12/18949 DYED YARN OPERATOR: ROBERTO 11/12/18949 RPT#: [id number] DC DATE: STATUS: ADM IN [facility] [address] [place] [address] END OF REPORT
[2018-11-12] MEDS ORDERED: LEVOFLOXACIN500 MG PO (14:42)
[2018-11-12] MEDS ORDERED: HYDROCODON-ACE1 EA10 PO (14:43)
[2018-11-12] MEDS ORDERED: SULFAMETHOXAZOL1 TA3 PO (14:43)
--- NOTE | 2018-11-12 15:05 | MORECARE ---
CASE MANAGEMENT DISCHARGE SUMMARY PATIENT: ENOC GARVEY UNIT: [id number] ADM DATE: 11/08/18 AGE: 53 : 61 SEX: F ROOM/BED: D.2229 AUTHOR: TANGELA,DOC PHYSICIAN: REFERRING PHYSICIAN: EILEEN BURNETT MD DATE OF SERVICE: 11/12/18 Discharge Plan Patient Name: ENOC GARVEY Facility: [facility]:[place] : 1965 Planned Disposition: Home Hlth Svc w Plan Readm Anticipated Discharge Date: Discharge Date: Expected LOS: Initial Reviewer: [email or web address] Initial Review Date: 11/11/2018 Generated: 11/12/18 4:05 pm Comments DCP- Discharge Planning Updated by [email or web address]: Greta Parisi on 11/12/18 2:[address] Received discharge orders. I called [facility] and spoke with Lissette, they will see her tomorrow. Her home wound vac is in the room. No changes to plan. CM will continue to follow and assist with discharge planning/needs. DCP- Discharge Planning Updated by [email or web address]: Greta Parisi on 11/12/18 8:[address] Wound Vac approved. Patient has signed receipt. I called Sara in [employer] and she will deliver home wound vac. I faxed signed receipt to [facility]. CM will continue to follow and assist with discharge planning/needs. DCP- Discharge Planning Updated by [email or web address]: Greta Parisi on 11/11/18 12:[address] Patient Name: ENOC GARVEY Admission Status: Elective Accout number: [id number] Admission Date: 11-08-2018 : 1965 Admission Diagnosis: Attending: EILEEN BURNETT Current LOS: 3 Anticipated DC Date: Planned Disposition: Home Hlth Svc w Plan Readm Primary Insurance: [facility] MEDICARE SOLUTIONS Discharge Planning Comments: CM met with patient to discuss discharge planning, she is alone in the room. She states she still lives with her friend (Ce). States she is independent with all ADL's. States Home health has still been seeing her twice a week. I discussed the availability of inpatient rehab, SNF, continued home health and DME. She states her plan is to return home with home health and feels this is a safe discharge. She will need a wound vac. I ordered wound vac and faxed clinical to [facility]. I called [facility] and informed of wound vac and will need dressing changes three times a week. CM will continue to follow and assist with discharge planning/needs. Artist Blacksmith: Gretaricky Parisi DCPIA - Discharge Planning Initial Assessment Updated by [id number]: Greta Parisi on 11/11/18 1:48 pm * Is the patient Alert and Oriented? Yes * How many steps to enter\exit or inside your home? 1/0 * PCP Dr. Chauhan * Pharmacy [facility] in [place] * Preadmission Environment Home with Family * ADLs Independent * Equipment Glucometer Nebulizer Other Oxygen Walker * Other Equipment Portable oxygen * List name and contact numbers for known caregivers / representatives who currently or will assist patient after discharge: Ce Diego - live in [facility] [phone] Bailee Sage - [facility] [phone] * Verbal permission to speak to the caregivers and representatives has been obtained from the patient. Yes * Community resources currently utilized Home Health * Please name any agencies selected above. [facility] is [facility] for oxygen and nebulizer supplies * Additional services required to return to the preadmission environment? Yes * Can the patient safely return to the preadmission environment? Yes * Has this patient been hospitalized within the prior 30 days at any hospital? No External Providers [facility] Next Contact Date: Service Request Date: Service Type: Resolution: Reviewer: Comments: Coverage Notice Reviewer: [email or web address] - Greta Isak Notice Issued Date-Time: 11/11/2018 13:44 Notice Type: Patient Choice Letter Notice Delivered To: Patient Relationship to Patient: Cage Cashier Name: Delivery Method: HAND - Hand Delivered Noreen Days: Prior Verbal Notification: Recipient Understood Notice: Yes Recipient Signature: Yes Med Rec Note Co-signed by Attending: Coverage Notice Comment: PANKAJ for [facility] and [facility] Last DP export: 11/12/18 8:50 a Patient Name: ENOC GARVEY Page 09751 at 1505 All edits/amendments must be made on the electronic document DICTATION DATE: 11/12/181503 SUPERVISOR METAL PLACING: ROBERTO 11/12/18 150 RPT#: [id number] [place] DATE: STATUS: ADM IN [facility] [address] [place] [address] END OF REPORT
--- NOTE | 2018-11-14 08:19 | MORECARE ---
CASE MANAGEMENT DISCHARGE SUMMARY PATIENT: ENOC GARVEY UNIT: [id number] ADM DATE: 11/08/18 AGE: 53 : 61 SEX: F ROOM/BED: D.2229 AUTHOR: TANGELA,ASHLEY PHYSICIAN: REFERRING PHYSICIAN: EILEEN BURNETT MD DATE OF SERVICE: 11/14/18 Discharge Plan Patient Name: ENOC GARVEY Facility: [facility]:[place] : 1965 Planned Disposition: Home Hlth Svc w Plan Readm Anticipated Discharge Date: Discharge Date: 11/12/2018 Expected LOS: 0 Initial Reviewer: [email or web address] Initial Review Date: 11/11/2018 Generated: 11/14/18 9:18 am Comments DCP- Discharge Planning Updated by [email or web address]: Greta Parisi on 11/12/18 2:[address] Received discharge orders. I called [facility] and spoke with Lissette, they will see her tomorrow. Her home wound vac is in the room. No changes to plan. CM will continue to follow and assist with discharge planning/needs. DCP- Discharge Planning Updated by [email or web address]: Greta Parisi on 11/12/18 8:[address] Wound Vac approved. Patient has signed receipt. I called [facility] in [employer] and she will deliver home wound vac. I faxed signed receipt to [facility]. CM will continue to follow and assist with discharge planning/needs. DCP- Discharge Planning Updated by [email or web address]: Greta Parisi on 11/11/18 12:[address] Patient Name: ENOC GARVEY Admission Status: Elective Accout number: [id number] Admission Date: 11-08-2018 : 1965 Admission Diagnosis: Attending: EILEEN BURNETT Current LOS: 3 Anticipated DC Date: Planned Disposition: Home Hlth Svc w Plan Readm Primary Insurance: [facility] [employer] Discharge Planning Comments: CM met with patient to discuss discharge planning, she is alone in the room. She states she still lives with her friend (Ce). States she is independent with all ADL's. States Home health has still been seeing her twice a week. I discussed the availability of inpatient rehab, SNF, continued home health and DME. She states her plan is to return home with home health and feels this is a safe discharge. She will need a wound vac. I ordered wound vac and faxed clinical to [facility]. I called Diana BROWN and informed of wound vac and will need dressing changes three times a week. CM will continue to follow and assist with discharge planning/needs. Fur Glosser: Greta Parisi DCPIA - Discharge Planning Initial Assessment Updated by [email or web address]: Greta Parisi on 11/11/18 1:48 pm * Is the patient Alert and Oriented? Yes * How many steps to enter\exit or inside your home? 1/0 * PCP Dr. Chauhan * Pharmacy [facility] in [place] * Preadmission Environment Home with Family * ADLs Independent * Equipment Glucometer Nebulizer Other Oxygen Walker * Other Equipment Portable oxygen * List name and contact numbers for known caregivers / representatives who currently or will assist patient after discharge: Ce Diego - live in [facility] [phone] Bailee Sage - [facility] [phone] * Verbal permission to speak to the caregivers and representatives has been obtained from the patient. Yes * Community resources currently utilized Home Health * Please name any agencies selected above. [facility] is [facility] for oxygen and nebulizer supplies * Additional services required to return to the preadmission environment? Yes * Can the patient safely return to the preadmission environment? Yes * Has this patient been hospitalized within the prior 30 days at any hospital? No Coverage Notice Reviewer: [id number] Patti Parisi Notice Issued Date-Time: 11/11/2018 13:44 Notice Type: Patient Choice Letter Notice Delivered To: Patient Relationship to Patient: [employer] Food Name: Delivery Method: HAND - Hand Delivered Noreen Days: Prior Verbal Notification: Recipient Understood Notice: Yes Recipient Signature: Yes Med Rec Note Co-signed by Attending: Coverage Notice Comment: PANKAJ for [facility]/Raquel and I Reviewer: [email or web address] Parisi Notice Issued Date-Time: 11/12/2018 15:09 Notice Type: IM Discharge Notice Notice Delivered To: Patient Relationship to Patient: Self [employer] Name: Delivery Method: HAND - Hand Delivered Noreen Days: Prior Verbal Notification: Recipient Understood Notice: Yes Recipient Signature: Yes Med Rec Note Co-signed by Attending: Coverage Notice Comment: IMM explained, signed, given, copy placed in MR Last DP export: 11/12/18 2:05 p Patient Name: ENOC GARVEY Page [id number] at 0819 All edits/amendments must be made on the electronic document DICTATION DATE: 11/14/18817 SURVEY TECHNICIAN: ROBERTO 11/14/18817 RPT#: [id number] DC DATE:11/12/18 STATUS: DIS IN [facility] [address] [place] [address] END OF REPORT
[2018-11-14 21:06] LABS: AEROBE ID Preliminary report (())
== END 2018-11-12 19:04 | disposition home health service (06) | DRG 330 ==
LOC: D.MS 14:38 → D.SDCHOLD 15:47 → D.MS 15:51
PROVIDERS: ADMIT Surgery; ATTEND Surgery
PROC: 0DB80ZZ Excision of Small Intestine, Open Approach (ICD-10-PCS; principal; 2018-11-08 12:45)
DX: K63.2 Fistula of intestine (principal); L03.311 Cellulitis of abdominal wall; L02.211 Cutaneous abscess of abdominal wall; E11.9 Type 2 diabetes mellitus without complications; J44.9 Chronic obstructive pulmonary disease, unspecified; K21.9 Gastro-esophageal reflux disease without esophagitis

== ENCOUNTER 2019-11-15 18:38 | Emergency (ER) | payer MEDICARE, MEDICAID ==
[~2019-11-15] VITALS: Ht 172.7 cm; Wt 93.2 kg
[~2019-11-15 18:38] MED LIST changes: +HYDROCODON-ACE1 EA10 PO; +SULFAMETHOXAZOL1 TA3 PO
[2019-11-15 18:44] VITALS: Ht 172.7 cm; Wt 93.2 kg
[2019-11-15 19:12] LABS: BASOPHILS 0.3 % (0-2); EOSINOPHILS 3.5 % (0-7); HEMATOCRIT 38.8 % (36.0-48.0); HEMOGLOBIN 12.5 g/dL (12-16); IMMATURE GRANULOCYTES 0.3 % (0-5); LYMPHOCYTES 31.1 % (15-50); MCH 30.8 pg (26.0-34.0); MCHC 32.2 g/dL (31.0-37.0); MCV 95.6 fL (80.0-100.0); MEAN PLATELET VOLUME 8.9 fL (7.4-10.4); MONOCYTES 8.9 % (2-11); NEUTROPHILS 55.9 % (40-80); PLATELET COUNT 175 10x3/uL (130-400); RBC 4.06 10x6/uL (4.00-5.40); RDW 13.5 % (11.5-14.5); WBC 6.7 10x3/uL (4.8-10.8)
[2019-11-15 19:31] LABS: ANION GAP 11.9 mmol/L (8-16); CALCIUM 8.5 mg/dL (8.5-10.1); CARBON DIOXIDE 27.2 mmol/L (21.0-32.0); CREATININE - SERUM 1.3 mg/dL (0.6-1.3); POTASSIUM - SERUM 4.1 mmol/L (3.5-5.1)
[2019-11-15 19:39] LABS: ALBUMIN 3.8 g/dL (3.4-5.0); BILIRUBIN - TOTAL 0.32 mg/dL (0.2-1.3); PROTEIN - SERUM 7.5 g/dL (6.4-8.2)
[2019-11-15 19:52] LABS: BILIRUBIN NEGATIVE (NEGATIVE); GLUCOSE NEGATIVE (NEGATIVE); KETONE NEGATIVE (NEGATIVE); NITRITE NEGATIVE (NEGATIVE); UROBILINOGEN NORMAL (NORMAL)
[2019-11-15 19:54] LABS: WHITE CELLS - URINE 0-5 /hpf (NEGATIVE)
[2019-11-15 19:55] LABS: BACTERIA MODERATE /hpf (NEGATIVE); RED CELLS - URINE NONE SEEN /hpf (0-5)
[2019-11-15] MEDS ORDERED: FLAGYL500 MG PO ×2 (21:31→21:32)
[2019-11-15] MEDS ORDERED: AMERICAINE HEMO30 GM RC (21:32)
[2019-11-15 21:52] VITALS: BP 116/70
== END 2019-11-15 21:52 | disposition home or self-care (01) ==
LOC: D.ER 18:38
PROVIDERS: Family Medicine
DX: A04.72 Enterocolitis due to Clostridium difficile, not specified as recurrent (principal); E11.9 Type 2 diabetes mellitus without complications; J44.9 Chronic obstructive pulmonary disease, unspecified; G61.0 Guillain-Barre syndrome; F17.200 Nicotine dependence, unspecified, uncomplicated; K21.9 Gastro-esophageal reflux disease without esophagitis; K62.89 Other specified diseases of anus and rectum; Z79.4 Long term (current) use of insulin

== ENCOUNTER 2020-10-28 09:28 | Day surgery (SDC) | payer MEDICARE, MEDICAID ==
[~2020-10-28] VITALS: Ht 172.7 cm; Wt 100.0 kg
[~2020-10-28 09:28] MED LIST changes: +AMERICAINE HEMO30 GM RC; +FLAGYL500 MG PO
[2020-10-28 09:54] LABS: ANION GAP 14.6 mmol/L (8-16); CALCIUM 8.9 mg/dL (8.5-10.1); CARBON DIOXIDE 22.5 mmol/L (21.0-32.0); CREATININE - SERUM 1.1 mg/dL (0.6-1.3); POTASSIUM - SERUM 4.1 mmol/L (3.5-5.1)
[2020-10-28 10:00] LABS: BASOPHILS 0.2 % (0-2); EOSINOPHILS 1.8 % (0-7); HEMOGLOBIN 12.3 g/dL (12-16); IMMATURE GRANULOCYTES 0.3 % (0-5); LYMPHOCYTE ABS# 1.99 10x3/uL (1.18-3.74); LYMPHOCYTES 30.6 % (15-50); MCH 29.5 pg (26.0-34.0); MCHC 32.4 g/dL (31.0-37.0); MCV 91.1 fL (80.0-100.0); MEAN PLATELET VOLUME 9.2 fL (7.4-10.4); MONOCYTES 8.5 % (2-11); NEUTROPHIL ABS# 3.81 10x3/uL (1.56-6.13); NEUTROPHILS 58.6 % (40-80); RBC 4.17 10x6/uL (4.00-5.40); RDW 14.6 % (11.5-14.5); WBC 6.5 10x3/uL (4.8-10.8)
[2020-10-28 10:10] LABS: PLATELET COUNT 220 10x3/uL (130-400)
[2020-10-28] MEDS ORDERED: GABAPENTIN100 MG PO (10:13)
[2020-10-28] MEDS ORDERED: BAYER CHEWABLE81 MG PO (10:13)
[2020-10-28 10:39] VITALS: BP 119/62; Ht 172.7 cm; Wt 100.0 kg
--- NOTE | 2020-10-28 12:07 | NUR ---
DC TEACHING COMPLETE. PT VERBALIZED UNDERSTANDING. 1215 PIV DC'D WITH CATHETER INTACT. FRIEND HELPING PT TO GET DRESSED 1223 PT DC'D VIA WC BY [employer] WITH ALL BELONGINGS AND DC PACKET TO POV WITH FRIEND DRIVING.
--- NOTE | 2020-10-29 14:17 | OP ---
PATIENT NAME: ENOC GARVEY MEDICAL RECORD: [id number] :[birth year] LOCATION:D.OPS ADMISSION DATE: SURGEON: RADHA CANO MD DATE OF OPERATION: 10/28/2020 DATE OF SERVICE: 10/28/2020 PROCEDURE: Upper endoscopy. PREOPERATIVE DIAGNOSIS: Abdominal pain. MEDICATION: Propofol per anesthesia. DESCRIPTION OF PROCEDURE: Upper endoscopy was performed. The patient was placed in the left lateral position. The endoscope was advanced through the mouth and advanced to the second part of the duodenum. The entire examined esophagus was normal. In the gastric body was erythema consistent with gastritis. Random gastric biopsies were taken. The small bowel was normal. Small bowel biopsies were taken. A small 1 cm hiatal hernia was seen on retroflex. The patient tolerated the procedure well. There were no immediate complications. FINAL DIAGNOSES: Normal esophagus, mild gastritis, small 1 cm hiatal hernia, normal duodenum. PLAN: Check histology results. Advance diet. Return to GI office. TRANSINT:[id number] Voice Confirmation ID: [id number] DOCUMENT ID: [id number] RADHA CANO MD at 1417 CC: [id number] DICTATION DATE: 10/28/20 1142 CENTRIFUGAL EXTRACTOR OPERATOR: 10/28/20 1149 [facility] 10/28/20 [id number] [place] [address]
== END 2020-10-28 12:23 | disposition home or self-care (01) ==
LOC: D.OPS 09:28
PROVIDERS: Anesthesiology; ATTEND Internal Medicine Gastroenterology
DX: R10.9 Unspecified abdominal pain (principal); K44.9 Diaphragmatic hernia without obstruction or gangrene; K29.70 Gastritis, unspecified, without bleeding; R10.13 Epigastric pain; K31.84 Gastroparesis; K21.9 Gastro-esophageal reflux disease without esophagitis; K31.89 Other diseases of stomach and duodenum